=== PATIENT | male | born 1950 | race Caucasian/White ===

== ENCOUNTER → 2016-04-20 | Outpatient (CLI) | payer MEDICARE, BC ==
--- OUTSIDE RECORDS SUMMARY | 2016-04-20 11:41 | XMS REPORT | Continuity of Care Document ---
Author Author [facility] Organization [facility] Address Unknown Phone Unavailable Care Team Providers Care Notary Public Name Role Phone Zofia Kearney PCP [phone] Source Comments Some departments are not documenting in the electronic medical record. If you do not see the information that you expected, contact Release of Information in the Health Information Management department at [phone] for further assistance in locating additional records.[facility] Active Allergies and Adverse Reactions Allergen Noted Date Severity Reactions Comments Ciprofloxacin 10/25/2014 Medium EDEMA Per patient caused leg swelling and tendonitis Current Medications Prescription Sig. Disp. Refills Start End Date Status Date tamsulosin (FLOMAX) 0.4 Take 0.4 mg by mouth Active mg capsule daily. zinc sulfate 220 mg (50 Take 220 mg by mouth Active mg elemental zinc) twice daily. capsule LORazepam (ATIVAN) 0.5 mg Take 0.25-0.5 mg by mouth Active tablet every 12 hours as needed. loperamide (IMODIUM) 2 mg Take 2 mg by mouth as Active capsule Needed. cholecalciferol (VITAMIN Take 2,000 Units by mouth Active D-3) 1,000 units tablet daily. magnesium oxide (MAG-OX) Take 400 mg by mouth Active 400 mg tablet daily. amitriptyline (ELAVIL) 25 Take 1 Tab by mouth at 30 Tab 5 09/25/19 Active mg tablet bedtime daily. 16 diphenoxylate/atropine Take 1 Tab by mouth four 60 Tab 5 11/21/19 Active (LOMOTIL) 2.5/0.025 mg times daily as needed. 16 tablet albuterol (VENTOLIN HFA, Inhale 2 Puffs by mouth Active PROAIR HFA, PROVENTIL every 6 hours as needed HFA) 90 mcg/actuation for Wheezing or Shortness inhaler of Breath. Shake well before use. inFLIXimab (REMICADE) 100 Administer through vein Active mg/10 mL injection once every 6 weeks enoxaparin (LOVENOX) 80 Inject 70 mg under the Active mg syrg skin twice daily. cyanocobalamin (VITAMIN Inject 1 mL into the Active B-12, RUBRAMIN) 1,000 muscle every 30 days. mcg/mL injection emu Apply small amount to 3 Bottle 3 03/26/20 Active sites of skin breakdown 16 for pain relief prednisone (DELTASONE) 10 Take 4 Tabs by mouth 60 Tab 1 03/26/20 Active mg tablet daily with breakfast. 16 lancets (ONE TOUCH Use 1 Each as directed 300 Each 11 03/26/20 Active DELICA) MISC four times daily as 16 needed. blood sugar diagnostic Use 1 Strip as directed 300 Strip 3 03/26/20 Active (ONETOUCH VERIO) test before meals and at 16 strip bedtime. Calcium Carbonate (TUMS Chew 1 Tab by mouth twice Active E-X) 300 mg (750 mg) chew daily. pantoprazole DR Take 1 Tab by mouth twice 90 Tab 3 03/29/20 Active (PROTONIX) 40 mg tablet daily. 16 folic acid (FOLVITE) 1 mg TAKE ONE TABLET BY MOUTH 30 Tab 0 04/02/20 Active tablet ONCE DAILY 16 folic acid (FOLVITE) 1 mg Take 1 Tab by mouth 30 Tab 11 03/18/20 Discontin tablet daily. [address] Take 1 Tab by mouth 90 Tab 2 04/09/20 03/29/20 Discontin (PROTONIX) 40 mg tablet daily. 15 16 ued prednisone (DELTASONE) 10 Take 2 Tabs by mouth 60 Tab 1 02/10/2012/06 Discontin mg tablet daily with breakfast. 16 16 ued calcium carbonate (TUMS) Chew 500 mg by mouth 03/29/20 Discontin 500 mg (200 mg elemental daily. 16 ued calcium) chewable tablet cephalexin (KEFLEX) 250 Take 250 mg by mouth 02/09/20 03/26/20 Discontin mg capsule three times daily. 16 16 ued doxycycline (VIBRAMYCIN) Take 1 Tab by mouth twice 12 Tab 0 03/26/20 04/01/20 100 mg tablet daily for 6 days. 16 16 Cholecalciferol (Vitamin Take 1 Cap by mouth 03/29/20 Discontin D3) 2,000 unit cap daily. 16 ued Active Problems Problem Noted Date Melena 03/28/2016 Cellulitis 03/20/2016 Malnutrition ([facility]) 03/17/2016 Chronic deep vein thrombosis (DVT) ([facility]) 03/17/2016 Irregular heart beat 03/17/2016 Osteoporosis, idiopathic 02/18/2016 Vitamin D deficiency 02/18/2016 Crohn's disease ([facility]) 11/28/2015 Dysgeusia 11/13/2015 Diarrhea 10/26/2014 Crohn disease ([facility]) 10/24/2014 Marinelli's esophagus without dysplasia 10/24/2014 Hypoalbuminemia due to protein-calorie malnutrition ([facility]) 06/26/2014 Iron deficiency anemia due to chronic blood loss 06/26/2014 Crohn's disease of both small and large intestine with complication ([facility]) Overview: dx in 2006 rx with 5ASA and steroids stricture in TI-> surgery at [facility] 2011 c/b anastomotic leak -> Ileostomy with mucous fistula-> taken down 2012 MTX-> GI intolerance; 6MP-> Pancreatitis Remicade, Humira -> 2ry KOSTAS rather early Tysabri-> No improvement ENtyvio 2013-> No improvement; remains steroid dependent with Entocort Resolved Problems Problem Noted Date Resolved Date Abdominal pain 01/10/2015 01/13/2015 Fever 01/10/2015 01/13/2015 Most Recent Encounters Date Type Specialty Providers Description 04/14/2016 Office Visit Gastroenterology Carmen Asencio MD Arrived 04/08/2016 Telephone Gastroenterology Carmen Asencio MD Care Coordination 04/01/2016 Refill Gastroenterology Carmen Asencio MD 03/31/2016 [facility], windows server support technician Only 03/28/2016 [facility] Chloé Herman MD Melena - Encounter Chrissy Cerda MD 03/29/2016 03/26/2016 Hospital Radiology Simon Almaguer, DO Encounter Cheikh Dodson, Linda Haque Thomas, MD 03/24/2016 Telephone GastroenterCarmen Boykin MD Erroneous encounter-disregard 03/23/2016 Orders Only Gastroenterology Carmen Asencio MD 03/23/2016 Telephone Gastroenterology Carmen Asencio MD Medication Follow-up 03/20/2016 Result Letter Gastroenterology Brett Corado MD 03/19/2016 Endo Rslt Enc Carmen Cerda MD 03/19/2016 Endo Rslt Enc GastroenterCarmen Boykin MD 03/19/2016 Anesthesia Argentina Rose CRNA Event 03/19/2016 Screening Form 03/19/2016 Surgery Brett Corado MD ESOPHAGOGASTRODUODENOSCOP Y 03/18/2016 Anesthesia Merlene Gonzalez SRNA Event 03/17/2016 Hospital Thelma Hartman MD Crohn disease (HCC) - Encounter Alda Martinez MD 03/26/2016 Brett Corado MD Jones, Matthew, DO 03/17/2016 Telephone Gastroenterology Carmen Asencio MD Other - symptoms 03/03/2016 Telephone GastroenterCarmen Boykin MD Other 2016 [facility] Holger Bagley MD Other osteoporosis Encounter without current pathological fracture 02/18/2016 [facility] Holger Bagley MD Other osteoporosis Encounter without current pathological fracture 02/18/2016 Office Visit Endocrinology, Metabolism Holger Bagley MD Osteoporosis, idiopathic & Genetics (Primary Dx); Vitamin D deficiency 02/18/2016 Telephone Endocrinology Holger Bagley MD Other 02/18/2016 Telephone Gastroenterology Carmen Asencio MD Other - labs 02/17/2016 Telephone Nephrology Genoveva Knott MD Results 02/13/2016 [facility] Genoveva Knott MD Unspecified Encounter protein-calorie malnutrition 02/13/2016 Office Visit Nephrology Genoveva Knott MD CKD (chronic kidney disease), unspecified stage (Primary Dx); Hypoalbuminemia due to protein-calorie malnutrition (HCC) 02/06/2016 Refill GastroenterCarmen Boykin MD 02/05/2016 Infusion Infusion Carmen Asencio MD Crohn's disease of small and large intestines with complication (HCC) (Primary Dx); Crohn's disease of both small and large intestine with other complication (HCC) 02/05/2016 Refill General Internal Medicine Lore Peters MD 02/04/2016 Orders Only Gastroenterology Carmen Asencio MD 02/03/2016 Telephone Gastroenterology Carmen Asencio MD Other - increase Remicade dose 02/03/2016 Telephone Gastroenterology Carmen Asencio MD Care Coordination 02/03/2016 Telephone Gastroenterology Carmen Asencio MD Results 01/27/2016 [facility] Carmen Asencio MD Crohn's disease of both Encounter small and large intestine with unspecified complications 01/24/2016 Telephone Gastroenterology Carmen Asencio MD Other - Diarrhea Immunizations Name Dates Previously Given Next Due Pneumococcal Vaccine 10/26/2014 (23-Charisse Adult) Social History Tobacco Use Types Packs/Day Years Used Date Former Smoker Cigarettes 1 40 Quit: 03/17/2012 Smokeless Tobacco: Never Used Tobacco Cessation: Counseling Given: No Comments: Alcohol Use Drinks/Week oz/Week Comments No 0 Standard 0.0 drinks or equivalent Last Filed Vital Signs Vital Sign Reading Time Taken Blood Pressure 115/69 04/14/2016 9:43 AM [employer] Pulse 69 04/14/2016 9:43 AM [employer] Temperature 36.7 C (98 F) 04/14/2016 9:43 AM [employer] Respiratory Rate 16 09/25/2015 10:30 AM CDT Height 1.753 m (5' 9") 04/14/2016 9:43 AM [employer] Weight 69.854 kg (154 lb) 04/14/2016 9:43 AM [employer] Body Mass Index 22.73 04/14/2016 9:43 AM [employer] Oxygen Saturation 98% 03/29/2016 1:16 PM [employer] Plan of Care Date Type Specialty Providers Description 04/29/2016 Appointment Infusion Health Maintenance Due Date Last Done Comments Physical (Comprehensive) 1957 Exam Pertussis Vaccine 1961 Tetanus Vaccine 1967 Shingles Vaccine 2010 Influenza Vaccine 12/19/2015 Prevnar/Pneumovax (#2) 02/22/2016 10/26/2014 Colorectal Cancer 03/19/2026 03/19/2016, 03/19/2016, 11/29/2015 Additional history exists Screening Hepatitis C Screening Completed 02/18/2016 Procedures from Last 3 Months Procedure Name Priority Date/Time Associated Diagnosis Comments ECG UNCONFIRMED-SCAN 04/15/2016 Results for this 6:25 AM [employer] procedure are in the results section. TELEMETRY STRIPS-SCAN 03/31/2016 Results for this 7:25 AM [employer] procedure are in the results section. ECG-SCAN 03/30/2016 Results for this 12:13 PM [employer] procedure are in the results section. COLONOSCOPY 03/19/2016 Crohn's disease (HCC) 9:00 AM [employer] ESOPHAGOGASTRODUODENOSCOP 03/19/2016 Crohn's disease (HCC) Y 9:00 AM [employer] PROCEDURES-SCAN 03/19/2016 Results for this 7:59 AM [employer] procedure are in the results section. CONSULT IV THERAPY TEAM Routine 03/18/2016 3:38 PM [employer] CONSULT IV THERAPY TEAM Routine 03/17/2016 5:26 PM [employer] Results from Last 3 Months ECG UNCONFIRMED-SCAN (04/15/2016 6:25 AM) Narrative Ordered by an unspecified provider. TELEMETRY STRIPS-SCAN (03/31/2016 7:25 AM) Narrative Ordered by an unspecified provider. ECG-SCAN (03/30/2016 12:13 PM) Narrative Ordered by an unspecified provider. POC GLUCOSE (03/29/2016 12:13 PM)Only the most recent of 42 results within the time period is included. Component Value Range Glucose, POC 139 (H) 70-100 MG/DL CBC (03/29/2016 9:37 AM)Only the most recent of 4 results within the time period is included. Component Value Range White Blood Cells 8.9 4.5-11.0 K/UL RBC 2.40 (L) 4.4-5.5 M/UL Hemoglobin 7.4 (L) 13.5-16.5 GM/DL Hematocrit 22.9 (L) 40-50 % MCV 95.5 80-100 FL MCH 30.8 26-34 PG MCHC 32.3 32.0-36.0 G/DL RDW 22.3 (H) 11-15 % Platelet Count 334 150-400 K/UL MPV 7.0 7-11 FL Specimen Blood TRIGLYCERIDE (03/29/2016 3:24 AM)Only the most recent of 4 results within the time period is included. Component Value Range Triglycerides 122 <150 MG/DL Specimen Blood PHOSPHORUS (03/29/2016 3:24 AM)Only the most recent of 15 results within the time period is included. Component Value Range Phosphorus 4.1 (H) 2.0-4.0 MG/DL Specimen Blood MAGNESIUM (03/29/2016 3:24 AM)Only the most recent of 13 results within the time period is included. Component Value Range Magnesium 1.9 1.6-2.6 mg/dL Specimen Blood COMPREHENSIVE METABOLIC PANEL (03/29/2016 3:24 AM)Only the most recent of 13 results within the time period is included. Component Value Range Sodium 133 (L) 137-147 MMOL/L Potassium 4.5 3.5-5.1 MMOL/L Chloride 102 98-110 MMOL/L Glucose 121 (H) 70-100 MG/DL Blood Urea Nitrogen 22 7-25 MG/DL Creatinine 0.89 0.4-1.24 MG/DL Calcium 8.2 (L) 8.5-10.6 MG/DL Total Protein 4.7 (L) 6.0-8.0 G/DL Total Bilirubin 0.4 0.3-1.2 MG/DL Albumin 2.2 (L) 3.5-5.0 G/DL Alk Phosphatase 148 (H) 25-110 U/L AST (SGOT) 23 7-40 U/L CO2 27 21-30 MMOL/L ALT (SGPT) 45 7-56 U/L Anion Gap 4 3-12 eGFR Non >60Comment: >60 mL/min The eGFR is not validated for use in drug dosing adjustments. Continue to use estimated creatinine clearance per dosing reference text. Please contact the Clinical Pharmacist for questions. eGFR >60Comment: >60 mL/min The eGFR is not validated for use in drug dosing adjustments. Continue to use estimated creatinine clearance per dosing reference text. Please contact the Clinical Pharmacist for questions. Specimen Blood CBC AND DIFF (03/29/2016 3:24 AM)Only the most recent of 13 results within the time period is included. Component Value Range White Blood Cells 8.8 4.5-11.0 K/UL RBC 2.42 (L) 4.4-5.5 M/UL Hemoglobin 7.5 (L) 13.5-16.5 GM/DL Hematocrit 23.1 (L) 40-50 % MCV 95.3 80-100 FL MCH 31.1 26-34 PG MCHC 32.6 32.0-36.0 G/DL RDW 21.7 (H) 11-15 % Platelet Count 318 150-400 K/UL MPV 7.0 7-11 FL Neutrophils 75 41-77 % Lymphocytes 16 (L) 24-44 % Monocytes 9 4-12 % Eosinophils 0 0-5 % Basophils 0 0-2 % Absolute Neutrophil Count 6.60 1.8-7.0 K/UL Absolute Lymph Count 1.40 1.0-4.8 K/UL Absolute Monocyte Count 0.80 0-0.80 K/UL Absolute Eosinophil Count 0.00 0-0.45 K/UL Absolute Basophil Count 0.00 0-0.20 K/UL Specimen Blood TYPE & CROSSMATCH (03/28/2016 6:00 AM)Only the most recent of 2 results within the time period is included. Component Value Range Units Ordered 0 Crossmatch Expires 03/31/2016 Record Check FOUND ABO/RH(D) A POS Antibody Screen NEG Electronic Crossmatch YES Specimen Blood PTT (APTT) (03/28/2016 5:00 AM) Component Value Range APTT 30.5 24.0-40.0 SEC Specimen Blood PROTIME INR (PT) (03/28/2016 5:00 AM)Only the most recent of 9 results within the time period is included. Component Value Range INR 0.9 0.8-1.[address] ABD/PEL EXTERNAL IMAGING (03/27/2016 7:45 PM) Narrative This order has been auto finalized and does not contain a result. IR CENTRAL VENOUS CATHETER (03/26/2016 2:33 PM) Impressions Successfulimage-guided placement of a cuffed tunneled central venous catheter as described above. Approved by Edgar Salazar M.D. on 03/26/2016 3:04 PM IRene M.D, the attending radiologist, was present for the critical and whittaker portions of the procedure with a midlevel, resident, and/or fellow participating.Overlapping portions were non whittaker and I was immediately available.I interpret the critical and whittaker portion of this procedure to have been needle access. @TT By my electronic signature, I attest that I have personally reviewed the images for this examination and formulated the interpretations and opinions expressed in this report Finalized by Rene Ross M.D. on 03/27/2016 4:59 PM. Dictated by Edgar Salazar M.D. on 03/26/2016 3:02 PM. Narrative Tunneled cuffed Central Venous Catheter Placement Under Ultrasound and Fluoro Guidance CLINICAL INDICATION: Malnutrition, central line for TPN WHEELMAN: Tara Jackson, M.D. MEDICATIONS: Versed 2 mg IV, Fentanyl 50 ug IV ACCESS:Right internal jugular vein CONTRAST: None COMPLICATIONS: None CATHETER: Single-lumen 5 Ecuadorean cuffed Bard POWER PICC FLUOROSCOPY DOSE:8 mGy TECHNIQUE:Informed, written consent was obtained from the patient after explaining the risks and benefits of the procedure.With the patient in the supine position, the right neck and upper chest were prepped and draped in the usual sterile fashion. The skin and subcutaneous tissues were infiltrated with 2 % Lidocaine without epinephrine. Under direct ultrasound guidance, the right internal jugular vein was successfully cannulated using a micropuncture needle and an image was stored to PACS.An 0.018 wire was advanced through the needle into the vein and a 5.5 Ecuadorean peel-away sheath was advanced centrally over wire. Attention was turned to the creation of a subcutaneous tunnel.2% Lidocaine with epinephrine were infiltrated along a 10-12 cm tract caudal and lateral to the initial venotomy site.A second small dermatotomy was made.The tunneling device was used to create a subcutaneous tunnel, and the catheter was advanced through to the initial venotomy site. The catheter was cut to length. The introducer of the 5.5 Ecuadorean sheath was removed and the tunneled cuffed catheter was advanced through the sheath and positioned centrally under fluoroscopic guidance. The venotomy site was closed with Dermabond. The catheter was secured to the skin with 2-0 Ethilon per hospital policy.The patient tolerated the procedure well and remained in stable condition throughout the stay in the angiography suite.The catheter was flushed, heparinized, and a sterile dressing was applied. FINDINGS: 1. Patent right internal jugular vein by ultrasound. Needle entry was documented , and an image was stored to PACS. 2. Tip of the catheter terminates in the right atrium. Procedure Note Interface, Radiant Results - WedMar 27, 2016 5:02 PM [employer] Tunneled cuffed Central Venous Catheter Placement Under Ultrasound and Fluoro Guidance CLINICAL INDICATION: Malnutrition, central line for TPN WHEELMAN: Edgar Salazar M.D. and Rene Ross M.D. MEDICATIONS: Versed 2 mg IV, Fentanyl 50 ug IV ACCESS: Right internal jugular vein CONTRAST: None COMPLICATIONS: None CATHETER: Single-lumen 5 Ecuadorean cuffed Bard POWER PICC FLUOROSCOPY DOSE: 8 mGy TECHNIQUE: Informed, written consent was obtained from the patient after explaining the risks and benefits of the procedure. With the patient in the supine position, the right neck and upper chest were prepped and draped in the usual sterile fashion. The skin and subcutaneous tissues were infiltrated with 2 % Lidocaine without epinephrine. Under direct ultrasound guidance, the right internal jugular vein was successfully cannulated using a micropuncture needle and an image was stored to PACS. An 0.018 wire was advanced through the needle into the vein and a 5.5 Ecuadorean peel-away sheath was advanced centrally over wire. Attention was turned to the creation of a subcutaneous tunnel. 2% Lidocaine with epinephrine were infiltrated along a 10-12 cm tract caudal and lateral to the initial venotomy site. A second small dermatotomy was made. The tunneling device was used to create a subcutaneous tunnel, and the catheter was advanced through to the initial venotomy site. The catheter was cut to length. The introducer of the 5.5 Ecuadorean sheath was removed and the tunneled cuffed catheter was advanced through the sheath and positioned centrally under fluoroscopic guidance. The venotomy site was closed with Dermabond. The catheter was secured to the skin with 2-0 Ethilon per hospital policy. The patient tolerated the procedure well and remained in stable condition throughout the stay in the angiography suite. The catheter was flushed, heparinized, and a sterile dressing was applied. FINDINGS: 1. Patent right internal jugular vein by ultrasound. Needle entry was documented, and an image was stored to PACS. 2. Tip of the catheter terminates in the right atrium. IMPRESSION Successful image-guided placement of a cuffed tunneled central venous catheter as described above. Approved by Edgar Salazar M.D. on 03/26/2016 3:04 PM Rene Jones M.D, the attending radiologist, was present for the critical and whittaker portions of the procedure with a midlevel, resident, and/or fellow participating. Overlapping portions were non whittaker and I was immediately available. I interpret the critical and whittaker portion of this procedure to have been needle access. @TT By my electronic signature, I attest that I have personally reviewed the images for this examination and formulated the interpretations and opinions expressed in this report Finalized by Rene Ross M.D. on 03/27/2016 4:59 PM. Dictated by Edgar Salazar M.D. on 03/26/2016 3:02 PM. SELENIUM (03/24/2016 4:05 AM) Component Value Range Selenium 36 (L)Comment: Reference range: 70 to 150 Unit: ng/mL ADDITIONAL INFORMATION This test was developed and its performance characteristics determined by [facility] in a manner consistent with CLIA requirements. This test has not been cleared or approved by the U.S. Food and Drug Administration. [facility], [address] [place] [id number] Specimen Blood TRANSFUSE RBC'S NON-BLEEDING PT (03/22/2016 4:50 PM) Specimen Blood BLOOD TYPE CONFIRMATION - ORDER ONLY IF REQUESTED BY LAB (03/22/2016 10:50 AM) Component Value Range ABO/RH(D) A POS Specimen Blood IRON + BINDING CAPACITY + %SAT (03/21/2016 4:21 PM)Only the most recent of 2 results within the time period is included. Component Value Range Iron 43 (L)Comment: SLT HEMOLYSIS 50-185 MCG/DL Specimen Blood GGTP (03/21/2016 4:55 AM) Component Value Range GGTP 100 (H) 9-64 U/L VANCOMYCIN TROUGH (03/21/2016 4:55 AM) Component Value Range Vancomycin Trough 14.1 10.0-20.0 MCG/ML Specimen Blood, venous - Blood FERRITIN (03/21/2016 4:55 AM) Component Value Range Ferritin 1059 (H) 30-300 NG/ML Specimen Blood BASIC METABOLIC PANEL (03/20/2016 1:35 PM)Only the most recent of 2 results within the time period is included. Component Value Range Sodium 129 (L) 137-147 MMOL/L Potassium 4.0 3.5-5.1 MMOL/L Chloride 101 98-110 MMOL/L CO2 26 21-30 MMOL/L Anion Gap 2 (L) 3-12 Glucose 111 (H) 70-100 MG/DL Blood Urea Nitrogen 14 7-25 MG/DL Creatinine 0.71 0.4-1.24 MG/DL Calcium 6.3 (L) 8.5-10.6 MG/DL eGFR Non >60Comment: >60 mL/min The eGFR is not validated for use in drug dosing adjustments. Continue to use estimated creatinine clearance per dosing reference text. Please contact the Clinical Pharmacist for questions. eGFR >60Comment: >60 mL/min The eGFR is not validated for use in drug dosing adjustments. Continue to use estimated creatinine clearance per dosing reference text. Please contact the Clinical Pharmacist for questions. Specimen Blood MRI ENTEROGRAPHY (03/19/2016 9:35 PM) Impressions 1.Prior right colectomy with a right upper quadrant enterocolonic anastomosis.Similar appearance of active inflammation involving the neoterminal ileum with associated complex fistulous tracts to adjacent tethered small bowel and small right upper quadrant peritoneal abscess. 2.Areas of colitis involving the transverse, descending and sigmoid colon 3.Diffuse hepatic steatosis 4.Diffuse iron overload throughout the normal-sized spleen, most suggestive of secondary hemochromatosis Finalized by Horacio Hester M.D. on 03/20/2016 8:06 AM. Dictated by Horacio Hester M.D. on 03/20/2016 7:44 AM. Narrative MRI ABDOMEN AND PELVIS Clinical Indication:Male, 66 years old. History of Crohn's disease. Please evaluate bowel.Crohn disease.Worsening nausea, vomiting and diarrhea. Technique:Multisequence and multiplanar MR imaging was obtained through the abdomen and pelvis before and following the administration of IV gadolinium contrast. IV Contrast:Multihance Bowel contrast: None Magnet:3 Melanie Siemens Comparison: Noncontrast CT abdomen/pelvis November 30, 2015.Contrast-enhanced CT abdomen/pelvis October 26, 2014 ABDOMEN FINDINGS: Lower Thorax: Unremarkable. Liver and Biliary system: Normal size liver. Diffuse hepatic steatosis. Spleen: Diffuse iron overload throughout the spleen.Normal size spleen. Adrenal Glands and Kidneys: There are several small left renal cysts, one of which is hemorrhagic. The right kidney and both adrenal glands are unremarkable. Pancreas and Retroperitoneum: Diffuse edema throughout the retroperitoneal fat. Aorta and Major Vessels: Normal caliber abdominal aorta with mild atherosclerosis. Bowel, Mesentery and Peritoneal space: Diffuse edema throughout the peritoneal fat. The right colon is absent with a right upper quadrant ileal colonic anastomosis. The small and large bowel loops are normal in caliber. There is a moderate length segment of bowel wall thickening, edema and mucosal hyperenhancement involving the sigmoid colon. There is a long segment of bowel wall thickening, edema and mucosal hyperenhancement involving the distal transverse colon and descending colon. There is a short segment of bowel wall thickening, edema and mucosal hyperenhancement involving the small bowel loop in the right upper quadrant (series 14 image 26) that leads to the anastomosis with the proximal transverse colon, similar to the prior exam. There is unchanged tethering of this and several adjacent small bowel loops in the right upper quadrant with a probable fistulous connection (series 14 image 26, series 2 image 7).There is a fistulous tract extending from these tethered small bowel loops into the anterior abdominal peritoneal fat of the right abdomen, just deep to the rectus abdominal wall musculature with a small associated abscess (series 5 image 29, series 16 image 33). Pelvis findings: Pelvis: Unremarkable. Abdominal wall and Osseous Structures: Diffuse body wall edema. Procedure Note Interface, Radiant Results - WedMar 20, 2016 8:09 AM AUTOMATIC DATA PROCESSING PLANNER MRI ABDOMEN AND PELVIS Clinical Indication: Male, 66 years old. History of Crohn's disease. Please evaluate bowel. Crohn disease. Worsening nausea, vomiting and diarrhea. Technique: Multisequence and multiplanar MR imaging was obtained through the abdomen and pelvis before and following the administration of IV gadolinium contrast. IV Contrast:Multihance Bowel contrast: None Magnet:3 Melanie Siemens Comparison: Noncontrast CT abdomen/pelvis November 30, 2015. Contrast-enhanced CT abdomen/pelvis October 26, 2014 ABDOMEN FINDINGS: Lower Thorax: Unremarkable. Liver and Biliary system: Normal size liver. Diffuse hepatic steatosis. Spleen: Diffuse iron overload throughout the spleen. Normal size spleen. Adrenal Glands and Kidneys: There are several small left renal cysts, one of which is hemorrhagic. The right kidney and both adrenal glands are unremarkable. Pancreas and Retroperitoneum: Diffuse edema throughout the retroperitoneal fat. Aorta and Major Vessels: Normal caliber abdominal aorta with mild atherosclerosis. Bowel, Mesentery and Peritoneal space: Diffuse edema throughout the peritoneal fat. The right colon is absent with a right upper quadrant ileal colonic anastomosis. The small and large bowel loops are normal in caliber. There is a moderate length segment of bowel wall thickening, edema and mucosal hyperenhancement involving the sigmoid colon. There is a long segment of bowel wall thickening, edema and mucosal hyperenhancement involving the distal transverse colon and descending colon. There is a short segment of bowel wall thickening, edema and mucosal hyperenhancement involving the small bowel loop in the right upper quadrant (series 14 image 26) that leads to the anastomosis with the proximal transverse colon, similar to the prior exam. There is unchanged tethering of this and several adjacent small bowel loops in the right upper quadrant with a probable fistulous connection (series 14 image 26, series 2 image 7). There is a fistulous tract extending from these tethered small bowel loops into the anterior abdominal peritoneal fat of the right abdomen, just deep to the rectus abdominal wall musculature with a small associated abscess (series 5 image 29, series 16 image 33). Pelvis findings: Pelvis: Unremarkable. Abdominal wall and Osseous Structures: Diffuse body wall edema. IMPRESSION 1. Prior right colectomy with a right upper quadrant enterocolonic anastomosis. Similar appearance of active inflammation involving the neoterminal ileum with associated complex fistulous tracts to adjacent tethered small bowel and small right upper quadrant peritoneal abscess. 2. Areas of colitis involving the transverse, descending and sigmoid colon 3. Diffuse hepatic steatosis 4. Diffuse iron overload throughout the normal-sized spleen, most suggestive of secondary hemochromatosis Finalized by Horacio Hester M.D. on 03/20/2016 8:06 AM. Dictated by Horacio Hester M.D. on 03/20/2016 7:44 AM. CULTURE-BLOOD W/SENSITIVITY (03/19/2016 4:07 PM)Only the most recent of 2 results within the time period is included. Component Value Range Battery Name BLOOD CULTURE Specimen Description BLOOD LH Special Requests NONE Culture NO GROWTH 5 DAYS Report Status FINAL 03/25/2016 Specimen Blood SURGICAL PATHOLOGY (03/19/2016 12:20 PM) Component Value Range PATHOLOGY REPORT [email or web address] Libby Castillo MD, PhD, Director of Anatomic Pathology Department of Pathology and Laboratory Medicine [address] [place] [id number] Surgical Pathology Office: [phone] SURGICAL PATHOLOGY REPORT NAME: PAYAM CHRISTEL Yuliana SURG PATH #: [id number] MR #: [id number] SPECIMEN CLASS: SR BILLING #: [id number] ALT ID #: LOCATION: [id number] DATE OF PROCEDURE: 03/19/2016 AGE: 66 SEX: M DATE RECEIVED: 03/19/2016 : 1950 TIME RECEIVED: 12:20 PHYSICIAN: BRETT CORADO DATE OF REPORT: 03/20/2016 COPY TO: DATE OF PRINTIN03/23/2016 Procedures/Addenda Addendum Date Ordered: 03/22/2016 Status: Signed Out Date Complete: 03/22/2016 By: Roque Fishman MD, Attending Physician Date Reported: 03/23/2016 Addendum Diagnosis The final diagnosis remains unchanged. See comment. Addendum Comment Immunohistochemical staining on blocks C1, D1, and E1 for CMV, HSVI, and HSVII are all negative for viral inclusions. Roque Fishman MD, Attending Physician ################################################## ###################### Final Diagnosis: A. Gastric mucosa, gastric biopsies: Reactive gastropathy. No H. pylori-like organisms are identified on H and E sections. B. Small intestinal mucosa, duodenal biopsies: No diagnostic abnormalities. C. Colonic mucosa, anastomosis colon biopsies: Focal cryptitis. D. Colonic mucosa, random colon biopsy: No diagnostic abnormalities. E. Colonic mucosa, rectal biopsies: No diagnostic abnormalities. Attestation: By this signature, I attest that I have personally formulated the final interpretation expressed in this report and that the above diagnosis is based upon my examination of the slides and/or other material indicated in this report. +++Electronically Signed Out By+++ ksw/03/19/2016 Interpreted by: Roque Fishman MD, Attending Physician Darryn Lancaster M.D. Resident 03/20/2016 ################################################## ###################### Material Received: A: gastric biopsies B: duodenal biopsies C: anastomosis colon biopsies D: random colon biopsy E: rectal biopsies History: 66-year-old male with a clinical history of Crohn's disease. A. Rule out IBD, Helicobacter pylori. B. Rule out IBD. C. Rule out CMV, HSV, Crohn's disease. D. Rule out CMV, HSV, Crohn's disease. E. Rule out CMV, HSV, Crohn's disease. Gross Description: A. Received in formalin labeled "gastric biopsies" is a 0.9 x 0.3 x 0.2 cm aggregate of chen-brown soft tissue fragments. The specimen is entirely submitted in cassette A1. (jrz) B. Received in formalin labeled "duodenal biopsies" is a 0.7 x 0.2 x 0.2 cm aggregate of chen-brown soft tissue fragments. The specimen is entirely submitted in cassette B1. (jrz) C. Received in formalin labeled "colon anastomosis biopsies" is a 1.1 x 0.2 x 0.2 cm aggregate of chen-brown soft tissue fragments. The specimen is entirely submitted in cassette C1. (jrz) D. Received in formalin labeled "random colon biopsies" is a 1.1 x 0.3 x 0.2 cm aggregate of chen-brown soft tissue fragments. The specimen is entirely submitted in cassette D1. (jrz) E. Received in formalin labeled "colon rectum biopsies" is a 0.7 x 0.3 x 0.1 cm aggregate of chen-brown soft tissue fragments. The specimen is entirely submitted in cassette E1. (jrz) ksw/03/19/2016 Darryn Lancaster M.D. Resident If immunohistochemical stains and/or in situ hybridization are cited in this report, the performance characteristics were determined by the Department of Pathology and Laboratory Medicine of the [facility] ([employer] [facility]) in compliance with CLIA'88 regulations. Some of these tests rely on the use of "analyte specific reagents" and are subject to specific labeling requirements by the FDA. Known positive and negative control tissues demonstrate appropriate staining. This testing was developed by the Department of Pathology and Laboratory Medicine of the [facility]. It has not been cleared or approved by the FDA. The FDA has determined that such clearance or approval is not necessary. COLONOSCOPY (03/19/2016 9:38 AM) Component Value Range Provation Report Patient Name: Payam Blake Procedure Date: 03/19/2016 9:38 AM [facility]: [id number] Date of : 1950 Gender: Male Attending Physician: Brett Corado MD Procedure: Colonoscopy Indications: Pe rsonal history of Crohn's disease Providers: Brett Corado MD (Doctor), Melvina Hartley MD (Fellow), Jayme Yan RN (Nurse), Kristina Kim, Director Of Clinical Services (Director Of Clinical Services) Referring Physician: Carmen Asencio MD Medications: Mo nitored Anesthesia Care Complications: No immediate complications. Procedure: Pre-Anesthesia Assessment: - Prior to the procedure, a History and Physical was performed, and patient medications and allergies were reviewed. The patient's tolerance of previous anesthesia was also reviewed. The risks and benefits of the procedure and the sedation options and risks were discussed with the patient. All questions were answered, and informed consent was obtained. Prior Anticoagulants: The patient has taken no previous anticoagulant or antiplatelet agents. ASA Grade Assessment: III - A patient with severe systemic disease. After reviewing the risks and benefits, the patient was deemed in satisfactory condition to undergo the procedure. After I obtained informed consent, the scope was passed under direct vision. Throughout the procedure, the patient's blood pressure, pulse, and oxygen saturations were monitored continuously. The Colonoscope [id number] was introduced through the anus and advanced to the ileocolonic anastomosis. The colonoscopy was performed without difficulty. The patient tolerated the procedure well. The quality of the bowel preparation was good. The rectum and Surgical anastamosis were photographed. Findings: There was severe inflammation with granular cobblestone tissue at entry of the rahel-terminal ileum and scope was not able to be intubated in to the ileum. Biopsies were obatained from abnormal mucosa to rule out IBD, CMV and HSV infection. The colon (entire examined portion) mucosa appeared edematous with decreased vascularity. Random biopsies were taken with a cold forceps for histology. The rectum appeared erythematous, with decreased vascularity. Seperate biopsies were taken with a cold forceps for histology. Retroflexion view was not performed due to inflammation and careful end on view was performed that showed small hemorrhoids. Impression: There was severe inflammation with granular cobblestone tissue at entry of the rahel-terminal ileum and scope was not able to be intubated in to the ileum. Biopsies were obatained from abnormal mucosa to rule out IBD, CMV and HSV infection. The colon (entire examined portion) mucosa appeared edematous with decreased vascularity. Random biopsies were taken with a cold forceps for histology. The rectum appeared erythematous, with decreased vascularity. Sepearte biopsies were taken with a cold forceps for histology. Retroflexion view was not performed due to inflammation and careful end on view was performed that showed small hemorrhoids. Estimated Blood Loss: Estimated blood loss was minimal. Recommendation: - Patient has a contact number available for emergencies. The signs and symptoms of potential delayed complications were discussed with the patient. Return to normal activities tomorrow. Written discharge instructions were provided to the patient. - Resume previous diet. - Continue present medications. - Return patient to [facility] for ongoing care. - Await pathology results. - Repeat colonoscopy is recommended for surveillance. The colonoscopy date will be determined after pathology results from today's exam become available for review. Scope In: 9:41:51 AM Scope Out: 10:15:03 AM Scope Withdrawal Time 0 hours 11 minutes 48 seconds Total Procedure Duration Time 0 hours 33 minutes 12 seconds Procedure Code(s): --- Professional --- 83205, Colonoscopy, flexible; with biopsy, single or multiple Diagnosis Code(s): --- Professional --- Z87.19, Personal history of other diseases of the digestive system CPT copyright 2015 [employer]. All rights reserved. The codes documented in this report are preliminary and upon quality control tester review may be revised to meet current compliance requirements. Attending Participation: I was present and participated during the entire procedure, including non-whittaker portions. MD Brett Caraballo MD 03/19/2016 10:43:10 AM The attending physician has electronically signed and finalized this document. MD Melvina Haider MD 03/19/2016 10:31:04 AM Number of Addenda: 0 Note Initiated On: 03/19/2016 9:38 AM EGD (03/19/2016 9:12 AM) Component Value Range Provation Report Patient Name: Payam Blake Procedure Date: 03/19/2016 9:12 AM CSN: [id number] Date of : 1950 Gender: Male Attending Physician: Brett Corado MD Procedure: Upper GI endoscopy Indications: Cr ohn's disease Providers: Brett Corado MD (Doctor), Melvina Hartley MD (Fellow), Jayme Yan RN (Nurse), Kristina Kim, Director Of Clinical Services (Director Of Clinical Services) Referring Physician: Carmen Asencio MD Medications: Mo nitored Anesthesia Care Complications: No immediate complications. Procedure: Pre-Anesthesia Assessment: - Prior to the procedure, a History and Physical was performed, and patient medications and allergies were reviewed. The patient's tolerance of previous anesthesia was also reviewed. The risks and benefits of the procedure and the sedation options and risks were discussed with the patient. All questions were answered, and informed consent was obtained. Prior Anticoagulants: The patient has taken no previous anticoagulant or antiplatelet agents. ASA Grade Assessment: III - A patient with severe systemic disease. After reviewing the risks and benefits, the patient was deemed in satisfactory condition to undergo the procedure. After obtaining informed consent, the endoscope was passed under direct vision. Throughout the procedure, the patient's blood pressure, pulse, and oxygen saturations were monitored continuously. The Endoscope 6601 was introduced through the mouth, and advanced to the second part of duodenum. The upper GI endoscopy was accomplished without difficulty. The patient tolerated the procedure well. Findings: Esophagogastric landmarks were identified: the Z-line was found at 40 cm from the incisors. A 3 cm hiatus hernia was present. The mucosa of the stomach was erythematous and granular, with thickened folds. Biopsies were obatined for histologic evaluation. The examined duodenum was normal. Biopsies were obatined for histologic evaluation. Impression: - Esophagogastric landmarks identified. - 3 cm hiatus hernia. - The mucosa of the stomach was erythematous, and granular, with thickened folds. Biopsies were obatined for histologic evaluation. - The examined duodenum was normal. Biopsies were obatined for histologic evaluation. Estimated Blood Loss: Estimated blood loss: none. Recommendation: - Patient has a contact number available for emergencies. The signs and symptoms of potential delayed complications were discussed with the patient. Return to normal activities tomorrow. Written discharge instructions were provided to the patient. - Resume previous diet. - Continue present medications. - Return to referring physician. - Return patient to [facility] for ongoing care. - Await pathology results. Scope In: 9:29:38 AM Scope Out: 9:37:41 AM Total Procedure Duration Time 0 hours 8 minutes 3 seconds Procedure Code(s): --- Professional --- 12926, Esophagogastroduodenoscopy, flexible, transoral; with biopsy, single or multiple Diagnosis Code(s): --- Professional --- K44.9, Diaphragmatic hernia without obstruction or gangrene K50.90, Crohn's disease, unspecified, without complications CPT copyright 2015 [employer]. All rights reserved. The codes documented in this report are preliminary and upon quality control tester review may be revised to meet current compliance requirements. Attending Participation: I was present and participated during the entire procedure, including non-whittaker portions. MD Brett Caraballo MD 03/19/2016 10:42:37 AM The attending physician has electronically signed and finalized this document. Melvina Hartley MD Number of Addenda: 0 Note Initiated On: 03/19/2016 9:12 AM PROCEDURES-SCAN (03/19/2016 7:59 AM) Narrative Ordered by an unspecified provider. COPPER (03/19/2016 4:47 AM) Component Value Range Copper, Serum 0.34 (L)Comment: Reference range: 0.75 to 1.45 Unit: mcg/mL ADDITIONAL INFORMATION This test was developed and its performance characteristics determined by [facility] in a manner consistent with CLIA requirements. This test has not been cleared or approved by the U.S. Food and Drug Administration. [facility], [address] [place] [id number] Specimen Blood ZINC (03/19/2016 4:47 AM) Component Value Range Zinc 0.21 (L)Comment: Reference range: 0.66 to 1.10 Unit: mcg/mL ADDITIONAL INFORMATION This test was developed and its performance characteristics determined by [facility] in a manner consistent with CLIA requirements. This test has not been cleared or approved by the U.S. Food and Drug Administration. [facility], [address] [place] [id number] Specimen Blood IONIZED CALCIUM (03/19/2016 4:45 AM) Component Value Range Ionized Calcium 1.01 1.0-1.3 MMOL/L Specimen Blood LINE PLCMT 1V CXR (03/18/2016 5:21 PM)Only the most recent of 2 results within the time period is included. Impressions ADJUSTMENT OF LEFT PICC LINE WITH TIP OVERLYING THE ATRIOCAVAL JUNCTION. Approved by Jose Daniel Colin M.D. on 03/19/2016 9:02 AM By my electronic signature, I attest that I have personally reviewed the images for this examination and formulated the interpretations and opinions expressed in this report Finalized by Larry Jones M.D. on 03/19/2016 11:39 AM. Dictated by Jose Daniel Colin M.D. on 03/19/2016 7:16 AM. Narrative LINE PLCMT 1V CXR History: PICC. Technique: Single portable AP upright view of the chest was obtained. Comparison: Same day chest radiograph. Findings: Interval adjustment of the left PICC line with tip now overlying the atrial caval junction. The cardiac silhouette is within normal limits of size. There is no pulmonary vascular congestion. No pneumothorax, consolidating pneumonia or pleural effusion is identified. Procedure Note Interface, Radiant Results - [facility] Mar 19, 2016 11:42 AM AUTOMATIC DATA PROCESSING PLANNER LINE PLCMT 1V CXR History: PICC. Technique: Single portable AP upright view of the chest was obtained. Comparison: Same day chest radiograph. Findings: Interval adjustment of the left PICC line with tip now overlying the atrial caval junction. The cardiac silhouette is within normal limits of size. There is no pulmonary vascular congestion. No pneumothorax, consolidating pneumonia or pleural effusion is identified. IMPRESSION ADJUSTMENT OF LEFT PICC LINE WITH TIP OVERLYING THE ATRIOCAVAL JUNCTION. Approved by Jose Daniel Colin M.D. on 03/19/2016 9:02 AM By my electronic signature, I attest that I have personally reviewed the images for this examination and formulated the interpretations and opinions expressed in this report Finalized by Larry Jones M.D. on 03/19/2016 11:39 AM. Dictated by Jose Daniel Colin M.D. on 03/19/2016 7:16 AM. US DOPPLER VENOUS W EXTRM RIGHT (03/18/2016 10:57 AM) Impressions No evidence of right upper extremity DVT as noted above. Finalized by Pauline William M.D. on 03/18/2016 11:07 AM. Dictated by Pauline William M.D. on 03/18/2016 11:04 AM. Narrative Ultrasound Doppler of right upper extremity. Clinical Indication: 66-year-old male with redness and swelling of right upper extremity. Evaluate for DVT. Technique: Multiple real-time grayscale sonographic images were obtained throughout the left upper extremity with additional color Doppler and duplex acquisitions. Findings: There is no filling defect within the visualized cephalic, brachial, basilic or axillary veins in the right upper extremity. The right subclavian, internal jugular and innominate veins appear patent. Note that the cephalic vein is only seen near the medial subclavian vein. Edema about the forearm is noted. No soft tissue mass or fluid collection is identified. Specific abnormality is not seen in the region of patient's localized skin redness. Procedure Note Interface, Radiant Results - WedMar 18, 2016 11:10 AM AUTOMATIC DATA PROCESSING PLANNER Ultrasound Doppler of right upper extremity. Clinical Indication: 66-year-old male with redness and swelling of right upper extremity. Evaluate for DVT. Technique: Multiple real-time grayscale sonographic images were obtained throughout the left upper extremity with additional color Doppler and duplex acquisitions. Findings: There is no filling defect within the visualized cephalic, brachial, basilic or axillary veins in the right upper extremity. The right subclavian, internal jugular and innominate veins appear patent. Note that the cephalic vein is only seen near the medial subclavian vein. Edema about the forearm is noted. No soft tissue mass or fluid collection is identified. Specific abnormality is not seen in the region of patient's localized skin redness. IMPRESSION No evidence of right upper extremity DVT as noted above. Finalized by Pauline William M.D. on 03/18/2016 11:07 AM. Dictated by Pauline William M.D. on 03/18/2016 11:04 AM. CULTURE-FECES W/SENSITIVITY (03/18/2016 3:43 AM) Component Value Range Battery Name STOOL CULTURE Specimen Description FECES Special Requests NONE Culture NO SALMONELLA, SHIGELLA, CAMPYLOBACTER, AEROMONAS, OR PLESIOMONAS SHIGA TOXIN NOT DETECTED Report Status FINAL 03/21/2016 Specimen Stool - Feces CRYPTOSPORIDUM,FECAL (03/18/2016 3:43 AM) Component Value Range Battery Name CRYPTOSPORIDIUM Specimen Description FECES Special Requests NONE Cryptosporidium NEGATIVE FOR CRYPTOSPORIDIUM Report Status FINAL 03/18/2016 Specimen Stool - Feces GIARDIA SCREEN,FECAL (03/18/2016 3:43 AM) Component Value Range Battery Name GIARDIA SCREEN Specimen Description FECES Special Requests NONE Giardia EIA NEGATIVE FOR GIARDIA (LAMBLIA) INTESTINALIS Report Status FINAL 03/18/2016 Specimen Feces C DIFFICILE BY PCR (03/18/2016 3:43 AM)Only the most recent of 2 results within the time period is included. Component Value Range Battery Name C DIFFICILE PCR Specimen Description FECES Special Requests NONE C. Difficile Toxin B PCR NEGATIVE-wait 7 days to repeat test Report Status FINAL 03/18/2016 Specimen Feces LEUKOCYTES, FECAL (03/18/2016 3:43 AM) Component Value Range Battery Name FECAL LEUKOCYTES Specimen Description FECES Special Requests NONE Fecal Leukocytes POSITIVE BY LACTOFERRIN Report Status FINAL 03/18/2016 Specimen Stool - Feces OSMOLALITY-URINE RANDOM (03/17/2016 11:25 PM) Component Value Range Osmolality-Urine 323 50-1400 MOS/KG Specimen Urine SODIUM-URINE RANDOM (03/17/2016 11:25 PM) Component Value Range Sodium, Random 11 MMOL/L Specimen Urine SED RATE (03/17/2016 9:30 PM) Component Value Range Sed Rate -ESR 5 0-20 MM/HR Specimen Blood PREALBUMIN (03/17/2016 5:20 PM) Component Value Range Prealbumin 3.0 (L) 17-34 MG/DL Specimen Blood C REACTIVE PROTEIN (CRP) (03/17/2016 5:20 PM) Component Value Range C-Reactive Protein 2.62 (H) <1.0 MG/DL Specimen Blood URINE COLLECTION (2016 12:06 PM) Component Value Range Collection Period, Urine 24.0 Volume, Urine 1480 MLS CREATININE-URINE 24 HR (2016 12:06 PM) Component Value Range Creatinine, Random 78 MG/DL Creat/24 HR 9501 621-8964 MG/24 HRS Specimen Urine CALCIUM-URINE 24HR (2016 12:06 PM) Component Value Range Calcium-Urine,Random 2.0 MG/DL Calcium, 24 HR 29.6 (L) 100-300 MG/24 HRS Specimen Urine ALBUMIN (02/18/2016 2:20 PM) Component Value Range Albumin 1.8 (L) 3.5-5.0 G/DL TSH WITH FREE T4 REFLEX (02/18/2016 2:20 PM) Component Value Range TSH 3.382 0.35-5.00 MCU/ML Specimen Blood 25-OH VITAMIN D (D2 + D3) (02/18/2016 2:20 PM) Component Value Range Vitamin D(25-OH)Total 27.3 (L) 30-80 NG/ML Specimen Blood HEPATITIS C AB (02/18/2016 2:20 PM) Component Value Range Anti HCV NEG Specimen Blood T SPOT TB (02/18/2016 2:20 PM) Component Value Range T Spot TB Negative The test result is Negative because the spot count in (Panel A minus Nil Control) and (Panel B minus Nil Control) is less than or equal to 4. This includes values less than zero.[id number]: Diagnosing or excluding tuberculosis disease, and assessing the probability of LTBI, requires a combination of epidemiological, historical, medical and diagnostic findings that should be taken into account when interpreting T-SPOT.TB test results. Refer to the most recent CDC guidance (http://www.cdc.gov/tb/publications/guidelines/def viry.htm) for detailed recommendations on diagnosing TB infection (including disease) and selecting persons for testing. Guidelines set forth by the Centers of Disease Control and Prevention (CDC) recommend contacts of a person with tuberculosis (TB) disease who have a negative initial interferon-gamma release assay (IGRA) or TST within 8 weeks of exposure be retested 8 - 10 weeks after last exposure. [id number] Neg Control TB Spot Count 2 Panel A TB Spot Count 5 Panel B TB Spot Count 1 Pos Control TB Spot Count >20 Specimen Blood PROTEIN/CR RATIO,UR RAN (02/13/2016 1:20 PM) Component Value Range Protein, Random 6 MG/DL Creatinine, Random 92 MG/DL Protein/CR ratio 0.1 Specimen Urine POC URINE DIPSTICK AUTO READ (02/13/2016) Component Value Range Urine Glucose POC Normal Urine Bilirubin POC 1 Urine Ketone POC Negative Urine Specific [place] 1.015 POC Urine Blood POC Negative Urine PH POC 6 Urine Protein POC Negative Urine Urobilinogen POC 1 Urine Nitrite POC Negative Urine Leukocytes POC Negative Specimen Urine INFLIXIMAB AB,S (01/27/2016 8:39 AM) Component Value Range Infliximab AB, S <20.0 Reference range: <50.0 Unit: U/mL [facility] Interpretation, INXAB Absence of detectable xalbyeln-ij-estygwuato. Low concentration of infliximab may be attributable to other parameters related to infliximab clearance. ADDITIONAL INFORMATION This test was developed and its performance characteristics determined by [facility] in a manner consistent with CLIA requirements. This test has not been cleared or approved by the U.S. Food and Drug Administration. [facility] [employer] INFLIXIMAB QUANT W REFLEX ANTIBODIES, SERUM (01/27/2016 8:39 AM) Component Value Range Infliximab, S <1.0 Unit: mcg/mL REFERENCE VALUE Limit of Quantitation=1.0 mcg/mL [facility], [address] [place] [id number] . Infliximab was not detectable by LC-MS/MS method. For concentrations of infliximab less than or equal to 5.0 mcg/mL, reflex testing for ixcsufnpcd-dl-kauqhpjnzv will be performed. ADDITIONAL INFORMATION This test was developed and its performance characteristics determined by [facility] in a manner consistent with CLIA requirements. This test has not been cleared or approved by the U.S. Food and Drug Administration. [facility] [employer], [facility] [place] [address] (L) VITAMIN B12 (01/27/2016 8:38 AM) Component Value Range Vitamin B12 1347 (H) 180-914 PG/ML Specimen Blood
[2016-04-20 11:43] LABS: BASOPHILS % (AUTO) 0 % (0-10); EOSINOPHILS % (AUTO) 0 % (0-10); LYMPHOCYTES # (AUTO) 0.6 X 10^3 (1.0-4.0); LYMPHOCYTES % (AUTO) 7 % (12-44); MEAN CORPUSCULAR HEMOGLOBIN 32 PG (25-34); MEAN CORPUSCULAR HGB CONC 31 G/DL (32-36); MEAN CORPUSCULAR VOLUME 103 FL (80-99); MEAN PLATELET VOLUME 10.1 FL (7.4-10.4); MONOCYTES # (AUTO) 0.7 X 10^3 (0.0-1.0); MONOCYTES % (AUTO) 8 % (0-12); NEUTROPHILS # (AUTO) 8.1 X 10^3 (1.8-7.8); NEUTROPHILS % (AUTO) 85 % (42-75); PLATELET COUNT 266 10^3/uL (130-400); RED BLOOD COUNT 2.48 10^6/uL (4.35-5.85); RED CELL DISTRIBUTION WIDTH 15.7 % (10.0-14.5); WHITE BLOOD COUNT 9.6 10^3/uL (4.3-11.0)
[2016-04-20 12:01] LABS: ANISOCYTOSIS SLIGHT; BAND NEUTROPHILS 8 %; BASOPHILS % (MANUAL) 1 %; EOSINOPHILS % (MANUAL) 0 %; LYMPHOCYTES % (MANUAL) 7 %; MYELOCYTES % 2 %; NEUTROPHILS % (MANUAL) 73 %
[2016-04-20 12:04] LABS: ALANINE AMINOTRANSFERASE 30 U/L (0-55); ANION GAP 6 MMOL/L (5-14); ASPARTATE AMINO TRANSFERASE 28 U/L (5-34); BILIRUBIN,TOTAL 0.2 MG/DL (0.1-1.0); BLOOD UREA NITROGEN 43 MG/DL (7-18); BUN/CREATININE RATIO 52; CARBON DIOXIDE 25 MMOL/L (21-32); CHLORIDE 106 MMOL/L (98-107); CREATININE SERUM 0.82 MG/DL (0.60-1.30); GFR ESTIMATED > 60; GLUCOSE 95 MG/DL (70-105); MAGNESIUM 1.9 MG/DL (1.8-2.4); PHOSPHORUS 3.1 MG/DL (2.3-4.7); POTASSIUM 4.5 MMOL/L (3.6-5.0); SODIUM 137 MMOL/L (135-145); TOTAL PROTEIN 5.1 G/DL (6.4-8.2); TRIGLYCERIDES 74 MG/DL (<150)
== END ==
LOC: LABNPT 11:36
PROVIDERS: ATTEND Internal Medicine
DX: E46 Unspecified protein-calorie malnutrition (principal); Z79.899 Other long term (current) drug therapy
CPT/HCPCS: 80053; 83735; 84100; 84478; 85007; 85027

== ENCOUNTER → 2016-10-19 | Outpatient (CLI) | payer MEDICARE, BC ==
[2016-10-19 18:54] LABS: BASOPHILS % (AUTO) 0 % (0-10); EOSINOPHILS % (AUTO) 0 % (0-10); LYMPHOCYTES # (AUTO) 1.1 X 10^3 (1.0-4.0); LYMPHOCYTES % (AUTO) 10 % (12-44); MEAN CORPUSCULAR HEMOGLOBIN 22 PG (25-34); MEAN CORPUSCULAR HGB CONC 30 G/DL (32-36); MEAN CORPUSCULAR VOLUME 74 FL (80-99); MEAN PLATELET VOLUME 9.5 FL (7.4-10.4); MONOCYTES # (AUTO) 0.7 X 10^3 (0.0-1.0); MONOCYTES % (AUTO) 6 % (0-12); NEUTROPHILS # (AUTO) 9.7 X 10^3 (1.8-7.8); NEUTROPHILS % (AUTO) 84 % (42-75); PLATELET COUNT 396 10^3/uL (130-400); RED BLOOD COUNT 3.78 10^6/uL (4.35-5.85); RED CELL DISTRIBUTION WIDTH 18.1 % (10.0-14.5); WHITE BLOOD COUNT 11.6 10^3/uL (4.3-11.0)
[2016-10-19 19:09] LABS: BAND NEUTROPHILS 5 %; LYMPHOCYTES % (MANUAL) 8 %; NEUTROPHILS % (MANUAL) 83 %
[2016-10-19 19:10] LABS: HYPOCHROMASIA MARKED; POLYCHROMASIA SLIGHT
[2016-10-19 19:14] LABS: ALANINE AMINOTRANSFERASE 13 U/L (0-55); ALBUMIN 3.2 GM/DL (3.2-4.5); ANION GAP 11 MMOL/L (5-14); ASPARTATE AMINO TRANSFERASE 12 U/L (5-34); BILIRUBIN,TOTAL 0.2 MG/DL (0.1-1.0); BLOOD UREA NITROGEN 30 MG/DL (7-18); BUN/CREATININE RATIO 30; CALCIUM 8.3 MG/DL (8.5-10.1); CARBON DIOXIDE 22 MMOL/L (21-32); CHLORIDE 105 MMOL/L (98-107); CREATININE SERUM 1.01 MG/DL (0.60-1.30); GFR ESTIMATED > 60; GLUCOSE 84 MG/DL (70-105); MAGNESIUM 1.7 MG/DL (1.8-2.4); PHOSPHORUS 3.6 MG/DL (2.3-4.7); POTASSIUM 4.8 MMOL/L (3.6-5.0); SODIUM 138 MMOL/L (135-145); TOTAL PROTEIN 6.2 GM/DL (6.4-8.2); TRIGLYCERIDES 83 MG/DL (<150)
== END ==
LOC: LABNPT 18:38
PROVIDERS: ATTEND Internal Medicine Gastroenterology
DX: K50.819 Crohn's disease of both small and large intestine with unspecified complications (principal)
CPT/HCPCS: 80053; 83735; 84100; 84134; 84478; 85007; 85027

== ENCOUNTER → 2016-12-21 | Outpatient (CLI) | payer MEDICARE, BC ==
[2016-12-21 12:36] LABS: BASOPHILS # (AUTO) 0.1 10^3/uL (0.0-0.1); BASOPHILS % (AUTO) 1 % (0-10); EOSINOPHILS # (AUTO) 0.1 10^3/uL (0.0-0.3); EOSINOPHILS % (AUTO) 2 % (0-10); LYMPHOCYTES # (AUTO) 1.2 X 10^3 (1.0-4.0); LYMPHOCYTES % (AUTO) 13 % (12-44); MEAN CORPUSCULAR HEMOGLOBIN 23 PG (25-34); MEAN CORPUSCULAR HGB CONC 30 G/DL (32-36); MEAN CORPUSCULAR VOLUME 76 FL (80-99); MEAN PLATELET VOLUME 9.8 FL (7.4-10.4); MONOCYTES # (AUTO) 1.1 X 10^3 (0.0-1.0); MONOCYTES % (AUTO) 12 % (0-12); NEUTROPHILS # (AUTO) 6.3 X 10^3 (1.8-7.8); NEUTROPHILS % (AUTO) 72 % (42-75); PLATELET COUNT 351 10^3/uL (130-400); RED CELL DISTRIBUTION WIDTH 21.5 % (10.0-14.5); WHITE BLOOD COUNT 8.7 10^3/uL (4.3-11.0)
[2016-12-21 12:57] LABS: ALANINE AMINOTRANSFERASE 10 U/L (0-55); ANION GAP 13 MMOL/L (5-14); ASPARTATE AMINO TRANSFERASE 10 U/L (5-34); BILIRUBIN,TOTAL 0.3 MG/DL (0.1-1.0); BLOOD UREA NITROGEN 28 MG/DL (7-18); BUN/CREATININE RATIO 31; CALCIUM 7.9 MG/DL (8.5-10.1); CARBON DIOXIDE 23 MMOL/L (21-32); CHLORIDE 100 MMOL/L (98-107); GFR ESTIMATED > 60; GLUCOSE 89 MG/DL (70-105); MAGNESIUM 1.8 MG/DL (1.8-2.4); PHOSPHORUS 2.6 MG/DL (2.3-4.7); POTASSIUM 4.1 MMOL/L (3.6-5.0); SODIUM 136 MMOL/L (135-145); TOTAL PROTEIN 5.9 GM/DL (6.4-8.2); TRIGLYCERIDES 67 MG/DL (<150)
== END ==
LOC: LABNPT 10:44
PROVIDERS: ATTEND Internal Medicine Gastroenterology
DX: E46 Unspecified protein-calorie malnutrition (principal)
CPT/HCPCS: 80053; 83735; 84100; 84134; 84478; 85025

== ENCOUNTER → 2017-01-25 | Outpatient (CLI) | payer MEDICARE, BC ==
[2017-01-25 12:08] LABS: BASOPHILS # (AUTO) 0.1 10^3/uL (0.0-0.1); BASOPHILS % (AUTO) 1 % (0-10); EOSINOPHILS # (AUTO) 0.1 10^3/uL (0.0-0.3); EOSINOPHILS % (AUTO) 1 % (0-10); LYMPHOCYTES # (AUTO) 1.6 X 10^3 (1.0-4.0); LYMPHOCYTES % (AUTO) 14 % (12-44); MEAN CORPUSCULAR HEMOGLOBIN 24 PG (25-34); MEAN CORPUSCULAR HGB CONC 30 G/DL (32-36); MEAN CORPUSCULAR VOLUME 79 FL (80-99); MEAN PLATELET VOLUME 9.3 FL (7.4-10.4); MONOCYTES # (AUTO) 1.4 X 10^3 (0.0-1.0); MONOCYTES % (AUTO) 12 % (0-12); NEUTROPHILS # (AUTO) 7.9 X 10^3 (1.8-7.8); NEUTROPHILS % (AUTO) 71 % (42-75); PLATELET COUNT 460 10^3/uL (130-400); RED BLOOD COUNT 4.01 10^6/uL (4.35-5.85)
[2017-01-25 12:31] LABS: ALANINE AMINOTRANSFERASE < 6 U/L (0-55); ALBUMIN 3.4 GM/DL (3.2-4.5); ANION GAP 8 MMOL/L (5-14); ASPARTATE AMINO TRANSFERASE 12 U/L (5-34); BILIRUBIN,TOTAL 0.3 MG/DL (0.1-1.0); BLOOD UREA NITROGEN 31 MG/DL (7-18); BUN/CREATININE RATIO 25; CALCIUM 8.6 MG/DL (8.5-10.1); CARBON DIOXIDE 20 MMOL/L (21-32); CHLORIDE 104 MMOL/L (98-107); CREATININE SERUM 1.23 MG/DL (0.60-1.30); GFR ESTIMATED 59; GLUCOSE 95 MG/DL (70-105); POTASSIUM 3.5 MMOL/L (3.6-5.0); SODIUM 132 MMOL/L (135-145)
== END ==
LOC: HH 11:05
PROVIDERS: ATTEND Internal Medicine Infectious Disease
DX: K50.00 Crohn's disease of small intestine without complications (principal); T80.212D Local infection due to central venous catheter, subsequent encounter

== ENCOUNTER → 2017-02-01 | Outpatient (CLI) | payer MEDICARE, BC ==
[2017-01-25 12:08] LABS: BASOPHILS # (AUTO) 0.1 10^3/uL (0.0-0.1); BASOPHILS % (AUTO) 1 % (0-10); EOSINOPHILS # (AUTO) 0.1 10^3/uL (0.0-0.3); EOSINOPHILS % (AUTO) 1 % (0-10); LYMPHOCYTES # (AUTO) 1.6 X 10^3 (1.0-4.0); LYMPHOCYTES % (AUTO) 14 % (12-44); MEAN CORPUSCULAR HEMOGLOBIN 24 PG (25-34); MEAN CORPUSCULAR HGB CONC 30 G/DL (32-36); MEAN CORPUSCULAR VOLUME 79 FL (80-99); MEAN PLATELET VOLUME 9.3 FL (7.4-10.4); MONOCYTES # (AUTO) 1.4 X 10^3 (0.0-1.0); MONOCYTES % (AUTO) 12 % (0-12); NEUTROPHILS # (AUTO) 7.9 X 10^3 (1.8-7.8); NEUTROPHILS % (AUTO) 71 % (42-75); PLATELET COUNT 460 10^3/uL (130-400); RED BLOOD COUNT 4.01 10^6/uL (4.35-5.85)
[2017-01-25 12:31] LABS: ALANINE AMINOTRANSFERASE < 6 U/L (0-55); ALBUMIN 3.4 GM/DL (3.2-4.5); ANION GAP 8 MMOL/L (5-14); ASPARTATE AMINO TRANSFERASE 12 U/L (5-34); BILIRUBIN,TOTAL 0.3 MG/DL (0.1-1.0); BLOOD UREA NITROGEN 31 MG/DL (7-18); BUN/CREATININE RATIO 25; CALCIUM 8.6 MG/DL (8.5-10.1); CARBON DIOXIDE 20 MMOL/L (21-32); CHLORIDE 104 MMOL/L (98-107); CREATININE SERUM 1.23 MG/DL (0.60-1.30); GFR ESTIMATED 59; GLUCOSE 95 MG/DL (70-105); POTASSIUM 3.5 MMOL/L (3.6-5.0); SODIUM 132 MMOL/L (135-145)
[2017-02-01 11:27] LABS: BASOPHILS # (AUTO) 0.1 10^3/uL (0.0-0.1); BASOPHILS % (AUTO) 1 % (0-10); EOSINOPHILS # (AUTO) 0.1 10^3/uL (0.0-0.3); EOSINOPHILS % (AUTO) 1 % (0-10); LYMPHOCYTES # (AUTO) 1.7 X 10^3 (1.0-4.0); LYMPHOCYTES % (AUTO) 16 % (12-44); MEAN CORPUSCULAR HEMOGLOBIN 24 PG (25-34); MEAN CORPUSCULAR HGB CONC 30 G/DL (32-36); MEAN CORPUSCULAR VOLUME 80 FL (80-99); MONOCYTES # (AUTO) 1.2 X 10^3 (0.0-1.0); MONOCYTES % (AUTO) 11 % (0-12); NEUTROPHILS # (AUTO) 7.6 X 10^3 (1.8-7.8); NEUTROPHILS % (AUTO) 72 % (42-75); PLATELET COUNT 350 10^3/uL (130-400); RED BLOOD COUNT 4.18 10^6/uL (4.35-5.85); RED CELL DISTRIBUTION WIDTH 18.7 % (10.0-14.5); WHITE BLOOD COUNT 10.7 10^3/uL (4.3-11.0)
[2017-02-01 11:49] LABS: ALANINE AMINOTRANSFERASE 10 U/L (0-55); ANION GAP 7 MMOL/L (5-14); ASPARTATE AMINO TRANSFERASE 11 U/L (5-34); BILIRUBIN,TOTAL 0.4 MG/DL (0.1-1.0); BLOOD UREA NITROGEN 25 MG/DL (7-18); BUN/CREATININE RATIO 23; CALCIUM 8.2 MG/DL (8.5-10.1); CARBON DIOXIDE 24 MMOL/L (21-32); CHLORIDE 100 MMOL/L (98-107); GFR ESTIMATED > 60; GLUCOSE 103 MG/DL (70-105); MAGNESIUM 1.6 MG/DL (1.8-2.4); POTASSIUM 3.6 MMOL/L (3.6-5.0); SODIUM 131 MMOL/L (135-145); TOTAL PROTEIN 6.1 GM/DL (6.4-8.2)
== END ==
LOC: HH 11:21
PROVIDERS: ATTEND Internal Medicine Infectious Disease
DX: K50.00 Crohn's disease of small intestine without complications (principal); T80.212D Local infection due to central venous catheter, subsequent encounter
CPT/HCPCS: 80053; 82607; 82746; 83735; 85025

== ENCOUNTER → 2017-02-11 | Outpatient (CLI) | payer MEDICARE, BC | LOC: HH 10:00 | PROVIDERS: ATTEND Internal Medicine Infectious Disease | DX: T80.212D Local infection due to central venous catheter, subsequent encounter (principal) | CPT/HCPCS: 87040 ==

== ENCOUNTER 2017-04-12 07:00 | Outpatient (RCR) | payer MEDICARE ==
[2017-04-12 10:22] LABS: BASOPHILS % (AUTO) 1 % (0-10); EOSINOPHILS % (AUTO) 1 % (0-10); HEMATOCRIT 23 % (40-54); HEMOGLOBIN 7.1 G/DL (13.3-17.7); LYMPHOCYTES # (AUTO) 1.3 X 10^3 (1.0-4.0); LYMPHOCYTES % (AUTO) 22 % (12-44); MEAN CORPUSCULAR HEMOGLOBIN 31 PG (25-34); MEAN CORPUSCULAR HGB CONC 31 G/DL (32-36); MEAN CORPUSCULAR VOLUME 98 FL (80-99); MEAN PLATELET VOLUME 9.1 FL (7.4-10.4); MONOCYTES # (AUTO) 0.9 X 10^3 (0.0-1.0); MONOCYTES % (AUTO) 16 % (0-12); NEUTROPHILS # (AUTO) 3.6 X 10^3 (1.8-7.8); NEUTROPHILS % (AUTO) 62 % (42-75); PLATELET COUNT 329 10^3/uL (130-400); RED BLOOD COUNT 2.33 10^6/uL (4.35-5.85); RED CELL DISTRIBUTION WIDTH 20.3 % (10.0-14.5); WHITE BLOOD COUNT 5.9 10^3/uL (4.3-11.0)
[2017-04-12 10:34] LABS: ALANINE AMINOTRANSFERASE 68 U/L (0-55); ALBUMIN 2.5 GM/DL (3.2-4.5); ALKALINE PHOSPHATASE 143 U/L (40-136); BILIRUBIN,TOTAL 0.3 MG/DL (0.1-1.0); BUN/CREATININE RATIO 55; CALCIUM 8.1 MG/DL (8.5-10.1); CARBON DIOXIDE 23 MMOL/L (21-32); CHLORIDE 105 MMOL/L (98-107); CREATININE SERUM 0.71 MG/DL (0.60-1.30); GFR ESTIMATED > 60; GLUCOSE 91 MG/DL (70-105); MAGNESIUM 1.8 MG/DL (1.8-2.4); PHOSPHORUS 1.9 MG/DL (2.3-4.7); POTASSIUM 4.7 MMOL/L (3.6-5.0); SODIUM 136 MMOL/L (135-145); TOTAL PROTEIN 5.4 GM/DL (6.4-8.2)
== END 2017-07-11 | disposition home or self-care (01) ==
LOC: LAB 07:00
PROVIDERS: ATTEND Family Medicine
DX: K50.80 Crohn's disease of both small and large intestine without complications (principal); E43 Unspecified severe protein-calorie malnutrition; D64.9 Anemia, unspecified; R53.83 Other fatigue
CPT/HCPCS: 36415; 80053; 83735; 84100; 85025

== ENCOUNTER → 2017-04-21 | Outpatient (CLI) | payer MEDICARE, BC ==
[2017-04-21 12:35] LABS: BASOPHILS # (AUTO) 0.1 10^3/uL (0.0-0.1); BASOPHILS % (AUTO) 1 % (0-10); EOSINOPHILS # (AUTO) 0.1 10^3/uL (0.0-0.3); EOSINOPHILS % (AUTO) 2 % (0-10); HEMATOCRIT 31 % (40-54); HEMOGLOBIN 9.8 G/DL (13.3-17.7); LYMPHOCYTES # (AUTO) 0.9 X 10^3 (1.0-4.0); LYMPHOCYTES % (AUTO) 15 % (12-44); MEAN CORPUSCULAR HEMOGLOBIN 30 PG (25-34); MEAN CORPUSCULAR HGB CONC 31 G/DL (32-36); MEAN CORPUSCULAR VOLUME 96 FL (80-99); MEAN PLATELET VOLUME 9.2 FL (7.4-10.4); MONOCYTES % (AUTO) 15 % (0-12); NEUTROPHILS # (AUTO) 4.3 X 10^3 (1.8-7.8); NEUTROPHILS % (AUTO) 68 % (42-75); PLATELET COUNT 435 10^3/uL (130-400); RED BLOOD COUNT 3.27 10^6/uL (4.35-5.85); RED CELL DISTRIBUTION WIDTH 16.1 % (10.0-14.5); WHITE BLOOD COUNT 6.4 10^3/uL (4.3-11.0)
[2017-04-21 12:49] LABS: ALANINE AMINOTRANSFERASE 38 U/L (0-55); ALKALINE PHOSPHATASE 89 U/L (40-136); BILIRUBIN,TOTAL 0.3 MG/DL (0.1-1.0); BUN/CREATININE RATIO 50; CALCIUM 8.6 MG/DL (8.5-10.1); CARBON DIOXIDE 20 MMOL/L (21-32); CHLORIDE 104 MMOL/L (98-107); GFR ESTIMATED > 60; GLUCOSE 100 MG/DL (70-105); MAGNESIUM 1.7 MG/DL (1.8-2.4); PHOSPHORUS 3.9 MG/DL (2.3-4.7); POTASSIUM 4.1 MMOL/L (3.6-5.0); SODIUM 135 MMOL/L (135-145); TOTAL PROTEIN 5.8 GM/DL (6.4-8.2)
== END ==
LOC: HH 04-15 07:00
PROVIDERS: ATTEND Surgery
DX: K50.80 Crohn's disease of both small and large intestine without complications (principal); E43 Unspecified severe protein-calorie malnutrition; D64.9 Anemia, unspecified; R53.83 Other fatigue
CPT/HCPCS: 80053; 83735; 84100; 85025

== ENCOUNTER → 2017-04-23 | Outpatient (CLI) | payer MEDICARE, BC ==
[2017-04-23 15:53] LABS: BASOPHILS % (AUTO) 0 % (0-10); EOSINOPHILS % (AUTO) 0 % (0-10); HEMATOCRIT 28 % (40-54); HEMOGLOBIN 9.7 G/DL (13.3-17.7); LYMPHOCYTES # (AUTO) 0.5 X 10^3 (1.0-4.0); LYMPHOCYTES % (AUTO) 6 % (12-44); MEAN CORPUSCULAR HEMOGLOBIN 30 PG (25-34); MEAN CORPUSCULAR HGB CONC 34 G/DL (32-36); MEAN CORPUSCULAR VOLUME 87 FL (80-99); MEAN PLATELET VOLUME 8.8 FL (7.4-10.4); MONOCYTES # (AUTO) 0.6 X 10^3 (0.0-1.0); MONOCYTES % (AUTO) 7 % (0-12); NEUTROPHILS # (AUTO) 6.9 X 10^3 (1.8-7.8); NEUTROPHILS % (AUTO) 86 % (42-75); PLATELET COUNT 423 10^3/uL (130-400); RED BLOOD COUNT 3.25 10^6/uL (4.35-5.85); RED CELL DISTRIBUTION WIDTH 14.9 % (10.0-14.5)
[2017-04-23 16:11] LABS: ALANINE AMINOTRANSFERASE 31 U/L (0-55); ALBUMIN 3.1 GM/DL (3.2-4.5); ALKALINE PHOSPHATASE 69 U/L (40-136); BILIRUBIN,TOTAL 0.2 MG/DL (0.1-1.0); BUN/CREATININE RATIO 54; CALCIUM 8.7 MG/DL (8.5-10.1); CARBON DIOXIDE 22 MMOL/L (21-32); CHLORIDE 100 MMOL/L (98-107); CREATININE SERUM 0.78 MG/DL (0.60-1.30); GFR ESTIMATED > 60; GLUCOSE 94 MG/DL (70-105); MAGNESIUM 1.7 MG/DL (1.8-2.4); POTASSIUM 4.6 MMOL/L (3.6-5.0); SODIUM 133 MMOL/L (135-145)
[2017-04-23 16:12] LABS: ANISOCYTOSIS SLIGHT; BAND NEUTROPHILS 17 %; BASOPHILS % (MANUAL) 0 %; EOSINOPHILS % (MANUAL) 0 %; LYMPHOCYTES % (MANUAL) 7 %; METAMYELOCYTES % 3 %; MONOCYTES % (MANUAL) 1 %; MYELOCYTES % 2 %; NEUTROPHILS % (MANUAL) 70 %
== END ==
LOC: HH 07:00
PROVIDERS: ATTEND Internal Medicine Gastroenterology
DX: K50.90 Crohn's disease, unspecified, without complications (principal); E43 Unspecified severe protein-calorie malnutrition
CPT/HCPCS: 80053; 83735; 84100; 84134; 85007; 85025; 85027

== ENCOUNTER → 2017-04-26 | Outpatient (CLI) | payer MEDICARE, BC ==
[2017-04-26 11:38] LABS: HEMATOCRIT 32 % (40-54); HEMOGLOBIN 9.3 G/DL (13.3-17.7); MEAN CORPUSCULAR HEMOGLOBIN 29 PG (25-34); MEAN CORPUSCULAR VOLUME 100 FL (80-99); RED BLOOD COUNT 3.18 10^6/uL (4.35-5.85); WHITE BLOOD COUNT 10.8 10^3/uL (4.3-11.0)
[2017-04-26 11:39] LABS: BASOPHILS # (AUTO) 0.1 10^3/uL (0.0-0.1); BASOPHILS % (AUTO) 1 % (0-10); EOSINOPHILS # (AUTO) 0.1 10^3/uL (0.0-0.3); EOSINOPHILS % (AUTO) 1 % (0-10); LYMPHOCYTES # (AUTO) 0.9 X 10^3 (1.0-4.0); LYMPHOCYTES % (AUTO) 8 % (12-44); MEAN CORPUSCULAR HGB CONC 29 G/DL (32-36); MEAN PLATELET VOLUME 9.2 FL (7.4-10.4); MONOCYTES # (AUTO) 1.1 X 10^3 (0.0-1.0); MONOCYTES % (AUTO) 11 % (0-12); NEUTROPHILS # (AUTO) 8.6 X 10^3 (1.8-7.8); NEUTROPHILS % (AUTO) 80 % (42-75); PLATELET COUNT 454 10^3/uL (130-400); RED CELL DISTRIBUTION WIDTH 15.3 % (10.0-14.5)
[2017-04-26 11:55] LABS: ALANINE AMINOTRANSFERASE 29 U/L (0-55); ALBUMIN 2.9 GM/DL (3.2-4.5); ALKALINE PHOSPHATASE 58 U/L (40-136); BILIRUBIN,TOTAL 0.2 MG/DL (0.1-1.0); BUN/CREATININE RATIO 58; CALCIUM 8.5 MG/DL (8.5-10.1); CARBON DIOXIDE 24 MMOL/L (21-32); CHLORIDE 103 MMOL/L (98-107); CREATININE SERUM 0.77 MG/DL (0.60-1.30); GFR ESTIMATED > 60; GLUCOSE 94 MG/DL (70-105); MAGNESIUM 1.6 MG/DL (1.8-2.4); PHOSPHORUS 3.3 MG/DL (2.3-4.7); POTASSIUM 4.2 MMOL/L (3.6-5.0); SODIUM 135 MMOL/L (135-145); TOTAL PROTEIN 5.6 GM/DL (6.4-8.2)
== END ==
LOC: HH 07:00
PROVIDERS: ATTEND Surgery
DX: K50.90 Crohn's disease, unspecified, without complications (principal); E43 Unspecified severe protein-calorie malnutrition
CPT/HCPCS: 80053; 83735; 84100; 84134; 85025

== ENCOUNTER → 2017-04-28 | Outpatient (CLI) | payer MEDICARE, BC ==
[2017-04-29 10:38] LABS: BASOPHILS # (AUTO) 0.1 10^3/uL (0.0-0.1); BASOPHILS % (AUTO) 1 % (0-10); EOSINOPHILS # (AUTO) 0.1 10^3/uL (0.0-0.3); EOSINOPHILS % (AUTO) 1 % (0-10); HEMATOCRIT 29 % (40-54); HEMOGLOBIN 9.3 G/DL (13.3-17.7); LYMPHOCYTES % (AUTO) 9 % (12-44); MEAN CORPUSCULAR HEMOGLOBIN 30 PG (25-34); MEAN CORPUSCULAR HGB CONC 32 G/DL (32-36); MEAN CORPUSCULAR VOLUME 94 FL (80-99); MEAN PLATELET VOLUME 9.2 FL (7.4-10.4); MONOCYTES % (AUTO) 9 % (0-12); NEUTROPHILS # (AUTO) 8.5 X 10^3 (1.8-7.8); NEUTROPHILS % (AUTO) 81 % (42-75); PLATELET COUNT 432 10^3/uL (130-400); RED BLOOD COUNT 3.06 10^6/uL (4.35-5.85); RED CELL DISTRIBUTION WIDTH 14.8 % (10.0-14.5); WHITE BLOOD COUNT 10.6 10^3/uL (4.3-11.0)
[2017-04-29 10:54] LABS: ALANINE AMINOTRANSFERASE 35 U/L (0-55); ALBUMIN 3.1 GM/DL (3.2-4.5); ALKALINE PHOSPHATASE 55 U/L (40-136); BILIRUBIN,TOTAL 0.2 MG/DL (0.1-1.0); BUN/CREATININE RATIO 64; CALCIUM 8.8 MG/DL (8.5-10.1); CARBON DIOXIDE 24 MMOL/L (21-32); CHLORIDE 101 MMOL/L (98-107); CREATININE SERUM 0.75 MG/DL (0.60-1.30); GFR ESTIMATED > 60; GLUCOSE 99 MG/DL (70-105); MAGNESIUM 1.8 MG/DL (1.8-2.4); POTASSIUM 4.1 MMOL/L (3.6-5.0); SODIUM 134 MMOL/L (135-145); TOTAL PROTEIN 5.8 GM/DL (6.4-8.2)
== END ==
LOC: HH 07:00
PROVIDERS: ATTEND Surgery
DX: K50.90 Crohn's disease, unspecified, without complications (principal); E43 Unspecified severe protein-calorie malnutrition

== ENCOUNTER → 2017-05-03 | Outpatient (CLI) | payer MEDICARE, BC ==
[2017-05-03 14:26] LABS: BASOPHILS % (AUTO) 0 % (0-10); EOSINOPHILS # (AUTO) 0.1 10^3/uL (0.0-0.3); EOSINOPHILS % (AUTO) 1 % (0-10); HEMATOCRIT 28 % (40-54); HEMOGLOBIN 9.2 G/DL (13.3-17.7); LYMPHOCYTES # (AUTO) 1.3 X 10^3 (1.0-4.0); LYMPHOCYTES % (AUTO) 12 % (12-44); MEAN CORPUSCULAR HEMOGLOBIN 30 PG (25-34); MEAN CORPUSCULAR HGB CONC 32 G/DL (32-36); MEAN CORPUSCULAR VOLUME 94 FL (80-99); MEAN PLATELET VOLUME 9.7 FL (7.4-10.4); MONOCYTES # (AUTO) 1.4 X 10^3 (0.0-1.0); MONOCYTES % (AUTO) 13 % (0-12); NEUTROPHILS # (AUTO) 8.6 X 10^3 (1.8-7.8); NEUTROPHILS % (AUTO) 75 % (42-75); PLATELET COUNT 350 10^3/uL (130-400); RED BLOOD COUNT 3.03 10^6/uL (4.35-5.85); RED CELL DISTRIBUTION WIDTH 14.5 % (10.0-14.5); WHITE BLOOD COUNT 11.4 10^3/uL (4.3-11.0)
[2017-05-03 15:05] LABS: ALANINE AMINOTRANSFERASE 36 U/L (0-55); ALKALINE PHOSPHATASE 57 U/L (40-136); BILIRUBIN,TOTAL 0.2 MG/DL (0.1-1.0); BUN/CREATININE RATIO 63; CALCIUM 8.5 MG/DL (8.5-10.1); CARBON DIOXIDE 23 MMOL/L (21-32); CHLORIDE 102 MMOL/L (98-107); CREATININE SERUM 0.75 MG/DL (0.60-1.30); GFR ESTIMATED > 60; GLUCOSE 86 MG/DL (70-105); MAGNESIUM 1.8 MG/DL (1.8-2.4); PHOSPHORUS 3.5 MG/DL (2.3-4.7); POTASSIUM 4.3 MMOL/L (3.6-5.0); SODIUM 134 MMOL/L (135-145); TOTAL PROTEIN 5.5 GM/DL (6.4-8.2)
== END ==
LOC: HH 07:00
PROVIDERS: ATTEND Surgery
DX: K50.90 Crohn's disease, unspecified, without complications (principal); E43 Unspecified severe protein-calorie malnutrition
CPT/HCPCS: 80053; 83735; 84100; 84134; 85025

== ENCOUNTER → 2017-05-06 | Outpatient (CLI) | payer MEDICARE, BC ==
[2017-05-06 14:37] LABS: BASOPHILS % (AUTO) 0 % (0-10); EOSINOPHILS % (AUTO) 0 % (0-10); HEMATOCRIT 30 % (40-54); HEMOGLOBIN 9.6 G/DL (13.3-17.7); LYMPHOCYTES # (AUTO) 0.8 X 10^3 (1.0-4.0); LYMPHOCYTES % (AUTO) 7 % (12-44); MEAN CORPUSCULAR HEMOGLOBIN 30 PG (25-34); MEAN CORPUSCULAR HGB CONC 32 G/DL (32-36); MEAN CORPUSCULAR VOLUME 93 FL (80-99); MEAN PLATELET VOLUME 9.8 FL (7.4-10.4); MONOCYTES # (AUTO) 0.6 X 10^3 (0.0-1.0); MONOCYTES % (AUTO) 5 % (0-12); NEUTROPHILS # (AUTO) 9.3 X 10^3 (1.8-7.8); NEUTROPHILS % (AUTO) 87 % (42-75); PLATELET COUNT 345 10^3/uL (130-400); RED BLOOD COUNT 3.19 10^6/uL (4.35-5.85); RED CELL DISTRIBUTION WIDTH 14.3 % (10.0-14.5); WHITE BLOOD COUNT 10.7 10^3/uL (4.3-11.0)
[2017-05-06 15:07] LABS: ALANINE AMINOTRANSFERASE 40 U/L (0-55); ALBUMIN 3.2 GM/DL (3.2-4.5); ALKALINE PHOSPHATASE 63 U/L (40-136); BILIRUBIN,TOTAL 0.2 MG/DL (0.1-1.0); BUN/CREATININE RATIO 54; CALCIUM 8.6 MG/DL (8.5-10.1); CARBON DIOXIDE 21 MMOL/L (21-32); CHLORIDE 105 MMOL/L (98-107); CREATININE SERUM 0.89 MG/DL (0.60-1.30); GFR ESTIMATED > 60; GLUCOSE 112 MG/DL (70-105); MAGNESIUM 1.8 MG/DL (1.8-2.4); PHOSPHORUS 3.9 MG/DL (2.3-4.7); POTASSIUM 4.7 MMOL/L (3.6-5.0); SODIUM 135 MMOL/L (135-145); TOTAL PROTEIN 6.1 GM/DL (6.4-8.2)
[2017-05-06 15:19] LABS: BAND NEUTROPHILS 4 %; BASOPHILS % (MANUAL) 0 %; EOSINOPHILS % (MANUAL) 1 %; HYPOCHROMASIA SLIGHT; LYMPHOCYTES % (MANUAL) 14 %; METAMYELOCYTES % 1 %; MONOCYTES % (MANUAL) 1 %; NEUTROPHILS % (MANUAL) 79 %; SPHEROCYTES SLIGHT
== END ==
LOC: LAB 07:00
PROVIDERS: ATTEND Surgery
DX: K50.90 Crohn's disease, unspecified, without complications (principal); E43 Unspecified severe protein-calorie malnutrition
CPT/HCPCS: 36415; 80053; 83735; 84100; 84134; 85007; 85027

== ENCOUNTER → 2017-05-10 | Outpatient (CLI) | payer MEDICARE, BC ==
[2017-05-10 11:03] LABS: BASOPHILS % (AUTO) 0 % (0-10); EOSINOPHILS # (AUTO) 0.1 10^3/uL (0.0-0.3); EOSINOPHILS % (AUTO) 1 % (0-10); HEMATOCRIT 30 % (40-54); HEMOGLOBIN 9.9 G/DL (13.3-17.7); LYMPHOCYTES # (AUTO) 1.2 X 10^3 (1.0-4.0); LYMPHOCYTES % (AUTO) 13 % (12-44); MEAN CORPUSCULAR HEMOGLOBIN 30 PG (25-34); MEAN CORPUSCULAR HGB CONC 33 G/DL (32-36); MEAN CORPUSCULAR VOLUME 91 FL (80-99); MEAN PLATELET VOLUME 9.4 FL (7.4-10.4); MONOCYTES # (AUTO) 1.2 X 10^3 (0.0-1.0); MONOCYTES % (AUTO) 13 % (0-12); NEUTROPHILS # (AUTO) 6.9 X 10^3 (1.8-7.8); NEUTROPHILS % (AUTO) 73 % (42-75); PLATELET COUNT 333 10^3/uL (130-400); RED BLOOD COUNT 3.32 10^6/uL (4.35-5.85); RED CELL DISTRIBUTION WIDTH 14.3 % (10.0-14.5); WHITE BLOOD COUNT 9.4 10^3/uL (4.3-11.0)
[2017-05-10 11:20] LABS: ALANINE AMINOTRANSFERASE 26 U/L (0-55); ALBUMIN 3.1 GM/DL (3.2-4.5); ALKALINE PHOSPHATASE 65 U/L (40-136); BILIRUBIN,TOTAL 0.3 MG/DL (0.1-1.0); BUN/CREATININE RATIO 62; CALCIUM 8.8 MG/DL (8.5-10.1); CARBON DIOXIDE 22 MMOL/L (21-32); CHLORIDE 102 MMOL/L (98-107); CREATININE SERUM 0.79 MG/DL (0.60-1.30); GFR ESTIMATED > 60; GLUCOSE 105 MG/DL (70-105); MAGNESIUM 1.9 MG/DL (1.8-2.4); PHOSPHORUS 4.3 MG/DL (2.3-4.7); POTASSIUM 4.3 MMOL/L (3.6-5.0); SODIUM 134 MMOL/L (135-145)
== END ==
LOC: HH 07:00
PROVIDERS: ATTEND Internal Medicine Gastroenterology
DX: K50.90 Crohn's disease, unspecified, without complications (principal); E43 Unspecified severe protein-calorie malnutrition
CPT/HCPCS: 80053; 83735; 84100; 84134; 85025

== ENCOUNTER → 2017-05-20 | Outpatient (CLI) | payer MEDICARE, BC ==
[2017-05-20 10:44] LABS: BASOPHILS # (AUTO) 0.1 10^3/uL (0.0-0.1); BASOPHILS % (AUTO) 1 % (0-10); EOSINOPHILS # (AUTO) 0.2 10^3/uL (0.0-0.3); EOSINOPHILS % (AUTO) 2 % (0-10); HEMATOCRIT 28 % (40-54); HEMOGLOBIN 8.7 G/DL (13.3-17.7); LYMPHOCYTES # (AUTO) 1.8 X 10^3 (1.0-4.0); LYMPHOCYTES % (AUTO) 16 % (12-44); MEAN CORPUSCULAR HEMOGLOBIN 29 PG (25-34); MEAN CORPUSCULAR HGB CONC 31 G/DL (32-36); MEAN CORPUSCULAR VOLUME 92 FL (80-99); MEAN PLATELET VOLUME 9.3 FL (7.4-10.4); MONOCYTES # (AUTO) 1.1 X 10^3 (0.0-1.0); MONOCYTES % (AUTO) 9 % (0-12); NEUTROPHILS # (AUTO) 8.5 X 10^3 (1.8-7.8); NEUTROPHILS % (AUTO) 72 % (42-75); PLATELET COUNT 410 10^3/uL (130-400); RED BLOOD COUNT 3.01 10^6/uL (4.35-5.85); WHITE BLOOD COUNT 11.7 10^3/uL (4.3-11.0)
[2017-05-20 11:03] LABS: ALANINE AMINOTRANSFERASE 52 U/L (0-55); ALBUMIN 3.4 GM/DL (3.2-4.5); ALKALINE PHOSPHATASE 211 U/L (40-136); BILIRUBIN,TOTAL 0.2 MG/DL (0.1-1.0); BUN/CREATININE RATIO 73; CALCIUM 9.1 MG/DL (8.5-10.1); CARBON DIOXIDE 24 MMOL/L (21-32); CHLORIDE 101 MMOL/L (98-107); GFR ESTIMATED > 60; GLUCOSE 103 MG/DL (70-105); POTASSIUM 3.9 MMOL/L (3.6-5.0); SODIUM 135 MMOL/L (135-145); TOTAL PROTEIN 6.4 GM/DL (6.4-8.2)
== END ==
LOC: HH 07:00
PROVIDERS: ATTEND Internal Medicine Gastroenterology
DX: K50.90 Crohn's disease, unspecified, without complications (principal); E43 Unspecified severe protein-calorie malnutrition
CPT/HCPCS: 80053; 83735; 84100; 84134; 85025

== ENCOUNTER → 2017-05-24 | Outpatient (CLI) | payer MEDICARE ==
[2017-05-24 11:55] LABS: BASOPHILS % (AUTO) 1 % (0-10); EOSINOPHILS # (AUTO) 0.1 10^3/uL (0.0-0.3); EOSINOPHILS % (AUTO) 2 % (0-10); HEMATOCRIT 47 % (40-54); HEMOGLOBIN 14.8 G/DL (13.3-17.7); LYMPHOCYTES # (AUTO) 0.8 X 10^3 (1.0-4.0); LYMPHOCYTES % (AUTO) 16 % (12-44); MEAN CORPUSCULAR HEMOGLOBIN 29 PG (25-34); MEAN CORPUSCULAR HGB CONC 32 G/DL (32-36); MEAN CORPUSCULAR VOLUME 91 FL (80-99); MEAN PLATELET VOLUME 9.2 FL (7.4-10.4); MONOCYTES # (AUTO) 0.5 X 10^3 (0.0-1.0); MONOCYTES % (AUTO) 10 % (0-12); NEUTROPHILS # (AUTO) 3.4 X 10^3 (1.8-7.8); NEUTROPHILS % (AUTO) 71 % (42-75); PLATELET COUNT 220 10^3/uL (130-400); RED BLOOD COUNT 5.12 10^6/uL (4.35-5.85); RED CELL DISTRIBUTION WIDTH 16.6 % (10.0-14.5); WHITE BLOOD COUNT 4.8 10^3/uL (4.3-11.0)
[2017-05-24 12:15] LABS: ALANINE AMINOTRANSFERASE 55 U/L (0-55); ALBUMIN 3.5 GM/DL (3.2-4.5); ALKALINE PHOSPHATASE 154 U/L (40-136); BILIRUBIN,TOTAL 0.3 MG/DL (0.1-1.0); BUN/CREATININE RATIO 67; CALCIUM 9.2 MG/DL (8.5-10.1); CARBON DIOXIDE 23 MMOL/L (21-32); CHLORIDE 103 MMOL/L (98-107); CREATININE SERUM 0.81 MG/DL (0.60-1.30); GFR ESTIMATED > 60; GLUCOSE 102 MG/DL (70-105); PHOSPHORUS 4.6 MG/DL (2.3-4.7); POTASSIUM 4.3 MMOL/L (3.6-5.0); SODIUM 137 MMOL/L (135-145); TOTAL PROTEIN 6.5 GM/DL (6.4-8.2)
== END ==
LOC: HH 07:00
PROVIDERS: ATTEND Internal Medicine Gastroenterology
DX: K50.90 Crohn's disease, unspecified, without complications (principal); E43 Unspecified severe protein-calorie malnutrition
CPT/HCPCS: 80053; 83735; 84100; 84134; 85025

== ENCOUNTER → 2017-05-27 | Outpatient (CLI) | payer MEDICARE ==
[2017-05-27 11:38] LABS: BASOPHILS # (AUTO) 0.1 10^3/uL (0.0-0.1); BASOPHILS % (AUTO) 1 % (0-10); EOSINOPHILS # (AUTO) 0.1 10^3/uL (0.0-0.3); EOSINOPHILS % (AUTO) 1 % (0-10); HEMATOCRIT 32 % (40-54); HEMOGLOBIN 10.2 G/DL (13.3-17.7); LYMPHOCYTES # (AUTO) 1.6 X 10^3 (1.0-4.0); LYMPHOCYTES % (AUTO) 20 % (12-44); MEAN CORPUSCULAR HEMOGLOBIN 29 PG (25-34); MEAN CORPUSCULAR HGB CONC 32 G/DL (32-36); MEAN CORPUSCULAR VOLUME 92 FL (80-99); MEAN PLATELET VOLUME 9.8 FL (7.4-10.4); MONOCYTES # (AUTO) 1.1 X 10^3 (0.0-1.0); MONOCYTES % (AUTO) 14 % (0-12); NEUTROPHILS % (AUTO) 64 % (42-75); PLATELET COUNT 375 10^3/uL (130-400); RED BLOOD COUNT 3.51 10^6/uL (4.35-5.85); RED CELL DISTRIBUTION WIDTH 15.7 % (10.0-14.5); WHITE BLOOD COUNT 7.9 10^3/uL (4.3-11.0)
[2017-05-27 11:56] LABS: ALANINE AMINOTRANSFERASE 38 U/L (0-55); ALBUMIN 3.7 GM/DL (3.2-4.5); ALKALINE PHOSPHATASE 109 U/L (40-136); BILIRUBIN,TOTAL 0.2 MG/DL (0.1-1.0); BUN/CREATININE RATIO 60; CALCIUM 9.5 MG/DL (8.5-10.1); CARBON DIOXIDE 25 MMOL/L (21-32); CHLORIDE 102 MMOL/L (98-107); CREATININE SERUM 0.87 MG/DL (0.60-1.30); GFR ESTIMATED > 60; GLUCOSE 109 MG/DL (70-105); PHOSPHORUS 4.7 MG/DL (2.3-4.7); POTASSIUM 4.4 MMOL/L (3.6-5.0); SODIUM 135 MMOL/L (135-145); TOTAL PROTEIN 6.6 GM/DL (6.4-8.2)
== END ==
LOC: HH 07:00
PROVIDERS: ATTEND Family Medicine
DX: K50.90 Crohn's disease, unspecified, without complications (principal); E43 Unspecified severe protein-calorie malnutrition
CPT/HCPCS: 80053; 83735; 84100; 84134; 85025

== ENCOUNTER → 2017-05-31 | Outpatient (CLI) | payer MEDICARE ==
[2017-05-31 17:29] LABS: BASOPHILS % (AUTO) 1 % (0-10); EOSINOPHILS # (AUTO) 0.1 10^3/uL (0.0-0.3); EOSINOPHILS % (AUTO) 1 % (0-10); HEMATOCRIT 33 % (40-54); HEMOGLOBIN 10.4 G/DL (13.3-17.7); LYMPHOCYTES # (AUTO) 0.7 X 10^3 (1.0-4.0); LYMPHOCYTES % (AUTO) 12 % (12-44); MEAN CORPUSCULAR HEMOGLOBIN 29 PG (25-34); MEAN CORPUSCULAR HGB CONC 32 G/DL (32-36); MEAN CORPUSCULAR VOLUME 92 FL (80-99); MEAN PLATELET VOLUME 10.8 FL (7.4-10.4); MONOCYTES # (AUTO) 0.6 X 10^3 (0.0-1.0); MONOCYTES % (AUTO) 9 % (0-12); NEUTROPHILS # (AUTO) 4.9 X 10^3 (1.8-7.8); NEUTROPHILS % (AUTO) 78 % (42-75); PLATELET COUNT 298 10^3/uL (130-400); RED BLOOD COUNT 3.56 10^6/uL (4.35-5.85); RED CELL DISTRIBUTION WIDTH 15.1 % (10.0-14.5); WHITE BLOOD COUNT 6.3 10^3/uL (4.3-11.0)
[2017-05-31 17:41] LABS: ALANINE AMINOTRANSFERASE 51 U/L (0-55); ALBUMIN 3.7 GM/DL (3.2-4.5); ALKALINE PHOSPHATASE 111 U/L (40-136); BILIRUBIN,TOTAL 0.2 MG/DL (0.1-1.0); BUN/CREATININE RATIO 58; CALCIUM 9.3 MG/DL (8.5-10.1); CARBON DIOXIDE 23 MMOL/L (21-32); CHLORIDE 101 MMOL/L (98-107); CREATININE SERUM 0.84 MG/DL (0.60-1.30); GFR ESTIMATED > 60; GLUCOSE 114 MG/DL (70-105); MAGNESIUM 1.9 MG/DL (1.8-2.4); PHOSPHORUS 4.3 MG/DL (2.3-4.7); POTASSIUM 4.8 MMOL/L (3.6-5.0); SODIUM 132 MMOL/L (135-145); TOTAL PROTEIN 6.5 GM/DL (6.4-8.2)
== END ==
LOC: HH 07:00
PROVIDERS: ATTEND Internal Medicine Gastroenterology
DX: K50.90 Crohn's disease, unspecified, without complications (principal); E43 Unspecified severe protein-calorie malnutrition
CPT/HCPCS: 80053; 83735; 84100; 84134; 85025

== ENCOUNTER → 2017-06-03 | Outpatient (CLI) | payer MEDICARE ==
[2017-06-03 10:57] LABS: BASOPHILS # (AUTO) 0.1 10^3/uL (0.0-0.1); BASOPHILS % (AUTO) 1 % (0-10); EOSINOPHILS # (AUTO) 0.1 10^3/uL (0.0-0.3); EOSINOPHILS % (AUTO) 2 % (0-10); HEMATOCRIT 33 % (40-54); HEMOGLOBIN 10.5 G/DL (13.3-17.7); LYMPHOCYTES # (AUTO) 1.6 X 10^3 (1.0-4.0); LYMPHOCYTES % (AUTO) 25 % (12-44); MEAN CORPUSCULAR HEMOGLOBIN 29 PG (25-34); MEAN CORPUSCULAR HGB CONC 31 G/DL (32-36); MEAN CORPUSCULAR VOLUME 92 FL (80-99); MEAN PLATELET VOLUME 10.8 FL (7.4-10.4); MONOCYTES % (AUTO) 15 % (0-12); NEUTROPHILS # (AUTO) 3.7 X 10^3 (1.8-7.8); NEUTROPHILS % (AUTO) 57 % (42-75); PLATELET COUNT 304 10^3/uL (130-400); RED BLOOD COUNT 3.65 10^6/uL (4.35-5.85); WHITE BLOOD COUNT 6.5 10^3/uL (4.3-11.0)
[2017-06-03 11:18] LABS: ALANINE AMINOTRANSFERASE 44 U/L (0-55); ALBUMIN 3.5 GM/DL (3.2-4.5); ALKALINE PHOSPHATASE 96 U/L (40-136); BILIRUBIN,TOTAL 0.2 MG/DL (0.1-1.0); BUN/CREATININE RATIO 67; CARBON DIOXIDE 23 MMOL/L (21-32); CHLORIDE 104 MMOL/L (98-107); CREATININE SERUM 0.79 MG/DL (0.60-1.30); GFR ESTIMATED > 60; GLUCOSE 95 MG/DL (70-105); MAGNESIUM 2.2 MG/DL (1.8-2.4); PHOSPHORUS 3.9 MG/DL (2.3-4.7); SODIUM 138 MMOL/L (135-145); TOTAL PROTEIN 6.2 GM/DL (6.4-8.2)
== END ==
LOC: HH 07:00
PROVIDERS: ATTEND Internal Medicine Gastroenterology
DX: K50.90 Crohn's disease, unspecified, without complications (principal); E46 Unspecified protein-calorie malnutrition
CPT/HCPCS: 80053; 83735; 84100; 84134; 85025

== ENCOUNTER → 2017-06-07 | Outpatient (CLI) | payer MEDICARE ==
[2017-06-07 12:44] LABS: BASOPHILS % (AUTO) 0 % (0-10); EOSINOPHILS # (AUTO) 0.1 10^3/uL (0.0-0.3); EOSINOPHILS % (AUTO) 1 % (0-10); HEMATOCRIT 36 % (40-54); HEMOGLOBIN 11.7 G/DL (13.3-17.7); LYMPHOCYTES # (AUTO) 0.9 X 10^3 (1.0-4.0); LYMPHOCYTES % (AUTO) 13 % (12-44); MEAN CORPUSCULAR HEMOGLOBIN 29 PG (25-34); MEAN CORPUSCULAR HGB CONC 33 G/DL (32-36); MEAN CORPUSCULAR VOLUME 88 FL (80-99); MEAN PLATELET VOLUME 10.7 FL (7.4-10.4); MONOCYTES # (AUTO) 0.6 X 10^3 (0.0-1.0); MONOCYTES % (AUTO) 8 % (0-12); NEUTROPHILS # (AUTO) 5.7 X 10^3 (1.8-7.8); NEUTROPHILS % (AUTO) 78 % (42-75); PLATELET COUNT 302 10^3/uL (130-400); RED BLOOD COUNT 4.04 10^6/uL (4.35-5.85); RED CELL DISTRIBUTION WIDTH 14.6 % (10.0-14.5); WHITE BLOOD COUNT 7.2 10^3/uL (4.3-11.0)
[2017-06-07 13:02] LABS: ALANINE AMINOTRANSFERASE 34 U/L (0-55); ALBUMIN 4.1 GM/DL (3.2-4.5); ALKALINE PHOSPHATASE 98 U/L (40-136); BILIRUBIN,TOTAL 0.3 MG/DL (0.1-1.0); BUN/CREATININE RATIO 54; CALCIUM 9.7 MG/DL (8.5-10.1); CARBON DIOXIDE 25 MMOL/L (21-32); CHLORIDE 96 MMOL/L (98-107); CREATININE SERUM 1.16 MG/DL (0.60-1.30); GFR ESTIMATED > 60; GLUCOSE 115 MG/DL (70-105); MAGNESIUM 2.2 MG/DL (1.8-2.4); PHOSPHORUS 4.7 MG/DL (2.3-4.7); POTASSIUM 5.1 MMOL/L (3.6-5.0); SODIUM 131 MMOL/L (135-145); TOTAL PROTEIN 7.2 GM/DL (6.4-8.2)
== END ==
LOC: HH 07:00
PROVIDERS: ATTEND Internal Medicine Gastroenterology
DX: K50.90 Crohn's disease, unspecified, without complications (principal); E43 Unspecified severe protein-calorie malnutrition
CPT/HCPCS: 80053; 83735; 84100; 84134; 85025

== ENCOUNTER → 2017-06-10 | Outpatient (CLI) | payer MEDICARE ==
[2017-06-10 11:10] LABS: BASOPHILS # (AUTO) 0.1 10^3/uL (0.0-0.1); BASOPHILS % (AUTO) 1 % (0-10); EOSINOPHILS # (AUTO) 0.1 10^3/uL (0.0-0.3); EOSINOPHILS % (AUTO) 1 % (0-10); HEMATOCRIT 33 % (40-54); LYMPHOCYTES # (AUTO) 1.5 X 10^3 (1.0-4.0); LYMPHOCYTES % (AUTO) 15 % (12-44); MEAN CORPUSCULAR HEMOGLOBIN 29 PG (25-34); MEAN CORPUSCULAR HGB CONC 33 G/DL (32-36); MEAN CORPUSCULAR VOLUME 87 FL (80-99); MEAN PLATELET VOLUME 10.8 FL (7.4-10.4); MONOCYTES # (AUTO) 1.1 X 10^3 (0.0-1.0); MONOCYTES % (AUTO) 11 % (0-12); NEUTROPHILS # (AUTO) 7.3 X 10^3 (1.8-7.8); NEUTROPHILS % (AUTO) 72 % (42-75); PLATELET COUNT 258 10^3/uL (130-400); RED BLOOD COUNT 3.83 10^6/uL (4.35-5.85); WHITE BLOOD COUNT 10.1 10^3/uL (4.3-11.0)
[2017-06-10 11:28] LABS: ALANINE AMINOTRANSFERASE 30 U/L (0-55); ALBUMIN 3.8 GM/DL (3.2-4.5); ALKALINE PHOSPHATASE 100 U/L (40-136); BILIRUBIN,TOTAL 0.3 MG/DL (0.1-1.0); BUN/CREATININE RATIO 64; CALCIUM 9.2 MG/DL (8.5-10.1); CARBON DIOXIDE 22 MMOL/L (21-32); CHLORIDE 99 MMOL/L (98-107); CREATININE SERUM 1.06 MG/DL (0.60-1.30); GFR ESTIMATED > 60; GLUCOSE 121 MG/DL (70-105); MAGNESIUM 2.3 MG/DL (1.8-2.4); PHOSPHORUS 4.7 MG/DL (2.3-4.7); POTASSIUM 4.3 MMOL/L (3.6-5.0); SODIUM 132 MMOL/L (135-145)
== END ==
LOC: HH 07:00
PROVIDERS: ATTEND Surgery
DX: K50.90 Crohn's disease, unspecified, without complications (principal); E43 Unspecified severe protein-calorie malnutrition
CPT/HCPCS: 80053; 83735; 84100; 84134; 85025

== ENCOUNTER → 2017-06-14 | Outpatient (CLI) | payer MEDICARE ==
[2017-06-14 14:20] LABS: BASOPHILS # (AUTO) 0.1 10^3/uL (0.0-0.1); BASOPHILS % (AUTO) 1 % (0-10); EOSINOPHILS # (AUTO) 0.1 10^3/uL (0.0-0.3); EOSINOPHILS % (AUTO) 1 % (0-10); HEMATOCRIT 36 % (40-54); HEMOGLOBIN 11.9 G/DL (13.3-17.7); LYMPHOCYTES # (AUTO) 1.4 X 10^3 (1.0-4.0); LYMPHOCYTES % (AUTO) 15 % (12-44); MEAN CORPUSCULAR HEMOGLOBIN 28 PG (25-34); MEAN CORPUSCULAR HGB CONC 33 G/DL (32-36); MEAN CORPUSCULAR VOLUME 86 FL (80-99); MEAN PLATELET VOLUME 10.9 FL (7.4-10.4); MONOCYTES # (AUTO) 0.7 X 10^3 (0.0-1.0); MONOCYTES % (AUTO) 8 % (0-12); NEUTROPHILS # (AUTO) 6.9 X 10^3 (1.8-7.8); NEUTROPHILS % (AUTO) 75 % (42-75); PLATELET COUNT 303 10^3/uL (130-400); RED BLOOD COUNT 4.24 10^6/uL (4.35-5.85); RED CELL DISTRIBUTION WIDTH 13.8 % (10.0-14.5); WHITE BLOOD COUNT 9.3 10^3/uL (4.3-11.0)
[2017-06-14 14:37] LABS: ALANINE AMINOTRANSFERASE 58 U/L (0-55); ALBUMIN 4.1 GM/DL (3.2-4.5); ALKALINE PHOSPHATASE 150 U/L (40-136); BILIRUBIN,TOTAL 0.2 MG/DL (0.1-1.0); BUN/CREATININE RATIO 65; CALCIUM 9.5 MG/DL (8.5-10.1); CARBON DIOXIDE 21 MMOL/L (21-32); CHLORIDE 99 MMOL/L (98-107); CREATININE SERUM 1.19 MG/DL (0.60-1.30); GFR ESTIMATED > 60; GLUCOSE 108 MG/DL (70-105); MAGNESIUM 2.2 MG/DL (1.8-2.4); POTASSIUM 4.3 MMOL/L (3.6-5.0); SODIUM 131 MMOL/L (135-145); TOTAL PROTEIN 7.4 GM/DL (6.4-8.2)
== END ==
LOC: HH 14:15
PROVIDERS: ATTEND Internal Medicine Gastroenterology
DX: K50.90 Crohn's disease, unspecified, without complications (principal); R77.0 Abnormality of albumin; D64.9 Anemia, unspecified
CPT/HCPCS: 80053; 83735; 84100; 84134; 85025

== ENCOUNTER → 2017-06-16 | Outpatient (CLI) | payer MEDICARE ==
[2017-06-16 12:31] LABS: BASOPHILS # (AUTO) 0.1 10^3/uL (0.0-0.1); BASOPHILS % (AUTO) 1 % (0-10); EOSINOPHILS # (AUTO) 0.1 10^3/uL (0.0-0.3); EOSINOPHILS % (AUTO) 1 % (0-10); HEMATOCRIT 36 % (40-54); HEMOGLOBIN 11.9 G/DL (13.3-17.7); LYMPHOCYTES # (AUTO) 1.8 X 10^3 (1.0-4.0); LYMPHOCYTES % (AUTO) 14 % (12-44); MEAN CORPUSCULAR HEMOGLOBIN 29 PG (25-34); MEAN CORPUSCULAR HGB CONC 33 G/DL (32-36); MEAN CORPUSCULAR VOLUME 87 FL (80-99); MEAN PLATELET VOLUME 10.9 FL (7.4-10.4); MONOCYTES # (AUTO) 1.4 X 10^3 (0.0-1.0); MONOCYTES % (AUTO) 11 % (0-12); NEUTROPHILS # (AUTO) 8.9 X 10^3 (1.8-7.8); NEUTROPHILS % (AUTO) 73 % (42-75); PLATELET COUNT 327 10^3/uL (130-400); RED BLOOD COUNT 4.15 10^6/uL (4.35-5.85); RED CELL DISTRIBUTION WIDTH 13.9 % (10.0-14.5); WHITE BLOOD COUNT 12.2 10^3/uL (4.3-11.0)
[2017-06-16 12:45] LABS: ALANINE AMINOTRANSFERASE 59 U/L (0-55); ALBUMIN 3.9 GM/DL (3.2-4.5); ALKALINE PHOSPHATASE 135 U/L (40-136); BILIRUBIN,TOTAL 0.2 MG/DL (0.1-1.0); BUN/CREATININE RATIO 68; CALCIUM 9.8 MG/DL (8.5-10.1); CARBON DIOXIDE 22 MMOL/L (21-32); CHLORIDE 102 MMOL/L (98-107); CREATININE SERUM 0.88 MG/DL (0.60-1.30); GFR ESTIMATED > 60; GLUCOSE 99 MG/DL (70-105); MAGNESIUM 2.3 MG/DL (1.8-2.4); PHOSPHORUS 3.6 MG/DL (2.3-4.7); POTASSIUM 4.4 MMOL/L (3.6-5.0); SODIUM 134 MMOL/L (135-145)
== END ==
LOC: HH 07:00
PROVIDERS: ATTEND Surgery
DX: K50.90 Crohn's disease, unspecified, without complications (principal); R77.0 Abnormality of albumin; D64.9 Anemia, unspecified
CPT/HCPCS: 80053; 83735; 84100; 84134; 85025

== ENCOUNTER → 2017-06-21 | Outpatient (CLI) | payer MEDICARE ==
[2017-06-21 11:30] LABS: BASOPHILS % (AUTO) 0 % (0-10); EOSINOPHILS # (AUTO) 0.1 10^3/uL (0.0-0.3); EOSINOPHILS % (AUTO) 1 % (0-10); HEMATOCRIT 36 % (40-54); HEMOGLOBIN 11.6 G/DL (13.3-17.7); LYMPHOCYTES # (AUTO) 1.6 X 10^3 (1.0-4.0); LYMPHOCYTES % (AUTO) 15 % (12-44); MEAN CORPUSCULAR HEMOGLOBIN 28 PG (25-34); MEAN CORPUSCULAR HGB CONC 33 G/DL (32-36); MEAN CORPUSCULAR VOLUME 87 FL (80-99); MEAN PLATELET VOLUME 10.5 FL (7.4-10.4); MONOCYTES # (AUTO) 1.1 X 10^3 (0.0-1.0); MONOCYTES % (AUTO) 10 % (0-12); NEUTROPHILS # (AUTO) 7.6 X 10^3 (1.8-7.8); NEUTROPHILS % (AUTO) 73 % (42-75); PLATELET COUNT 271 10^3/uL (130-400); RED BLOOD COUNT 4.11 10^6/uL (4.35-5.85); RED CELL DISTRIBUTION WIDTH 14.3 % (10.0-14.5); WHITE BLOOD COUNT 10.4 10^3/uL (4.3-11.0)
[2017-06-21 11:44] LABS: ALANINE AMINOTRANSFERASE 32 U/L (0-55); ALKALINE PHOSPHATASE 94 U/L (40-136); BILIRUBIN,TOTAL 0.2 MG/DL (0.1-1.0); BUN/CREATININE RATIO 50; CALCIUM 9.7 MG/DL (8.5-10.1); CARBON DIOXIDE 26 MMOL/L (21-32); CHLORIDE 99 MMOL/L (98-107); CREATININE SERUM 1.01 MG/DL (0.60-1.30); GFR ESTIMATED > 60; GLUCOSE 112 MG/DL (70-105); MAGNESIUM 2.2 MG/DL (1.8-2.4); PHOSPHORUS 4.7 MG/DL (2.3-4.7); POTASSIUM 4.5 MMOL/L (3.6-5.0); SODIUM 133 MMOL/L (135-145); TOTAL PROTEIN 7.1 GM/DL (6.4-8.2)
== END ==
LOC: HH 07:00
PROVIDERS: ATTEND Internal Medicine Gastroenterology
DX: K50.90 Crohn's disease, unspecified, without complications (principal)
CPT/HCPCS: 80053; 83735; 84100; 84134; 85025

== ENCOUNTER → 2017-06-24 | Outpatient (CLI) | payer MEDICARE ==
[2017-06-24 11:38] LABS: BASOPHILS % (AUTO) 0 % (0-10); EOSINOPHILS # (AUTO) 0.1 10^3/uL (0.0-0.3); EOSINOPHILS % (AUTO) 1 % (0-10); HEMATOCRIT 35 % (40-54); HEMOGLOBIN 11.5 G/DL (13.3-17.7); LYMPHOCYTES # (AUTO) 1.6 X 10^3 (1.0-4.0); LYMPHOCYTES % (AUTO) 15 % (12-44); MEAN CORPUSCULAR HEMOGLOBIN 28 PG (25-34); MEAN CORPUSCULAR HGB CONC 33 G/DL (32-36); MEAN CORPUSCULAR VOLUME 87 FL (80-99); MEAN PLATELET VOLUME 10.8 FL (7.4-10.4); MONOCYTES # (AUTO) 1.2 X 10^3 (0.0-1.0); MONOCYTES % (AUTO) 10 % (0-12); NEUTROPHILS # (AUTO) 8.2 X 10^3 (1.8-7.8); NEUTROPHILS % (AUTO) 74 % (42-75); PLATELET COUNT 259 10^3/uL (130-400); RED BLOOD COUNT 4.07 10^6/uL (4.35-5.85); RED CELL DISTRIBUTION WIDTH 14.3 % (10.0-14.5); WHITE BLOOD COUNT 11.1 10^3/uL (4.3-11.0)
[2017-06-24 12:02] LABS: ALANINE AMINOTRANSFERASE 24 U/L (0-55); ALBUMIN 3.9 GM/DL (3.2-4.5); ALKALINE PHOSPHATASE 82 U/L (40-136); BILIRUBIN,TOTAL 0.2 MG/DL (0.1-1.0); BUN/CREATININE RATIO 47; CALCIUM 9.4 MG/DL (8.5-10.1); CARBON DIOXIDE 28 MMOL/L (21-32); CHLORIDE 100 MMOL/L (98-107); CREATININE SERUM 0.93 MG/DL (0.60-1.30); GFR ESTIMATED > 60; GLUCOSE 107 MG/DL (70-105); MAGNESIUM 2.3 MG/DL (1.8-2.4); PHOSPHORUS 4.5 MG/DL (2.3-4.7); POTASSIUM 4.3 MMOL/L (3.6-5.0); SODIUM 136 MMOL/L (135-145)
== END ==
LOC: HH 10:17
PROVIDERS: ATTEND Internal Medicine Gastroenterology
DX: K50.90 Crohn's disease, unspecified, without complications (principal)
CPT/HCPCS: 80053; 83735; 84100; 84134; 85025

== ENCOUNTER → 2017-06-28 | Outpatient (CLI) | payer MEDICARE ==
[2017-06-28 15:03] LABS: BASOPHILS % (AUTO) 0 % (0-10); EOSINOPHILS # (AUTO) 0.1 10^3/uL (0.0-0.3); EOSINOPHILS % (AUTO) 1 % (0-10); HEMATOCRIT 35 % (40-54); HEMOGLOBIN 11.2 G/DL (13.3-17.7); LYMPHOCYTES # (AUTO) 1.1 X 10^3 (1.0-4.0); LYMPHOCYTES % (AUTO) 16 % (12-44); MEAN CORPUSCULAR HEMOGLOBIN 27 PG (25-34); MEAN CORPUSCULAR HGB CONC 32 G/DL (32-36); MEAN CORPUSCULAR VOLUME 87 FL (80-99); MEAN PLATELET VOLUME 11.1 FL (7.4-10.4); MONOCYTES # (AUTO) 0.9 X 10^3 (0.0-1.0); MONOCYTES % (AUTO) 13 % (0-12); NEUTROPHILS # (AUTO) 5.1 X 10^3 (1.8-7.8); NEUTROPHILS % (AUTO) 70 % (42-75); PLATELET COUNT 238 10^3/uL (130-400); RED BLOOD COUNT 4.09 10^6/uL (4.35-5.85); RED CELL DISTRIBUTION WIDTH 14.4 % (10.0-14.5); WHITE BLOOD COUNT 7.2 10^3/uL (4.3-11.0)
[2017-06-28 15:13] LABS: ALANINE AMINOTRANSFERASE 47 U/L (0-55); ALBUMIN 3.9 GM/DL (3.2-4.5); ALKALINE PHOSPHATASE 96 U/L (40-136); BILIRUBIN,TOTAL 0.2 MG/DL (0.1-1.0); BUN/CREATININE RATIO 50; CALCIUM 9.3 MG/DL (8.5-10.1); CARBON DIOXIDE 26 MMOL/L (21-32); CHLORIDE 100 MMOL/L (98-107); CREATININE SERUM 0.98 MG/DL (0.60-1.30); GFR ESTIMATED > 60; GLUCOSE 102 MG/DL (70-105); PHOSPHORUS 3.8 MG/DL (2.3-4.7); POTASSIUM 4.1 MMOL/L (3.6-5.0); SODIUM 134 MMOL/L (135-145)
== END ==
LOC: HH 07:00
PROVIDERS: ATTEND Internal Medicine Gastroenterology
DX: K50.90 Crohn's disease, unspecified, without complications (principal)
CPT/HCPCS: 80053; 83735; 84100; 84134; 85025

== ENCOUNTER → 2017-07-01 | Outpatient (CLI) | payer MEDICARE ==
[2017-07-01 17:17] LABS: BASOPHILS % (AUTO) 0 % (0-10); EOSINOPHILS # (AUTO) 0.1 10^3/uL (0.0-0.3); EOSINOPHILS % (AUTO) 1 % (0-10); HEMATOCRIT 34 % (40-54); HEMOGLOBIN 10.9 G/DL (13.3-17.7); LYMPHOCYTES % (AUTO) 15 % (12-44); MEAN CORPUSCULAR HEMOGLOBIN 28 PG (25-34); MEAN CORPUSCULAR HGB CONC 32 G/DL (32-36); MEAN CORPUSCULAR VOLUME 86 FL (80-99); MONOCYTES # (AUTO) 0.8 X 10^3 (0.0-1.0); MONOCYTES % (AUTO) 12 % (0-12); NEUTROPHILS # (AUTO) 4.6 X 10^3 (1.8-7.8); NEUTROPHILS % (AUTO) 71 % (42-75); PLATELET COUNT 228 10^3/uL (130-400); RED BLOOD COUNT 3.91 10^6/uL (4.35-5.85); RED CELL DISTRIBUTION WIDTH 14.4 % (10.0-14.5); WHITE BLOOD COUNT 6.4 10^3/uL (4.3-11.0)
[2017-07-01 17:20] LABS: ALANINE AMINOTRANSFERASE 62 U/L (0-55); ALBUMIN 3.9 GM/DL (3.2-4.5); ALKALINE PHOSPHATASE 105 U/L (40-136); BILIRUBIN,TOTAL 0.2 MG/DL (0.1-1.0); BUN/CREATININE RATIO 43; CALCIUM 9.5 MG/DL (8.5-10.1); CARBON DIOXIDE 26 MMOL/L (21-32); CHLORIDE 101 MMOL/L (98-107); CREATININE SERUM 1.07 MG/DL (0.60-1.30); GFR ESTIMATED > 60; GLUCOSE 104 MG/DL (70-105); MAGNESIUM 1.8 MG/DL (1.8-2.4); PHOSPHORUS 4.4 MG/DL (2.3-4.7); POTASSIUM 4.5 MMOL/L (3.6-5.0); SODIUM 135 MMOL/L (135-145); TOTAL PROTEIN 6.8 GM/DL (6.4-8.2)
== END ==
LOC: HH 16:54
PROVIDERS: ATTEND Family Medicine
DX: K50.90 Crohn's disease, unspecified, without complications (principal); E43 Unspecified severe protein-calorie malnutrition
CPT/HCPCS: 80053; 83735; 84100; 85025

== ENCOUNTER → 2017-07-05 | Outpatient (CLI) | payer MEDICARE ==
[2017-07-05 13:30] LABS: BASOPHILS % (AUTO) 0 % (0-10); EOSINOPHILS # (AUTO) 0.1 10^3/uL (0.0-0.3); EOSINOPHILS % (AUTO) 1 % (0-10); HEMATOCRIT 34 % (40-54); HEMOGLOBIN 11.1 G/DL (13.3-17.7); LYMPHOCYTES # (AUTO) 1.2 X 10^3 (1.0-4.0); LYMPHOCYTES % (AUTO) 19 % (12-44); MEAN CORPUSCULAR HEMOGLOBIN 28 PG (25-34); MEAN CORPUSCULAR HGB CONC 33 G/DL (32-36); MEAN CORPUSCULAR VOLUME 85 FL (80-99); MEAN PLATELET VOLUME 10.9 FL (7.4-10.4); MONOCYTES # (AUTO) 0.9 X 10^3 (0.0-1.0); MONOCYTES % (AUTO) 14 % (0-12); NEUTROPHILS % (AUTO) 65 % (42-75); PLATELET COUNT 242 10^3/uL (130-400); RED BLOOD COUNT 4.01 10^6/uL (4.35-5.85); RED CELL DISTRIBUTION WIDTH 14.3 % (10.0-14.5); WHITE BLOOD COUNT 6.2 10^3/uL (4.3-11.0)
[2017-07-05 13:50] LABS: ALANINE AMINOTRANSFERASE 38 U/L (0-55); ALBUMIN 3.9 GM/DL (3.2-4.5); ALKALINE PHOSPHATASE 108 U/L (40-136); BILIRUBIN,TOTAL 0.2 MG/DL (0.1-1.0); BUN/CREATININE RATIO 30; CALCIUM 9.4 MG/DL (8.5-10.1); CARBON DIOXIDE 28 MMOL/L (21-32); CHLORIDE 97 MMOL/L (98-107); CREATININE SERUM 1.15 MG/DL (0.60-1.30); GFR ESTIMATED > 60; GLUCOSE 95 MG/DL (70-105); MAGNESIUM 1.8 MG/DL (1.8-2.4); PHOSPHORUS 4.6 MG/DL (2.3-4.7); POTASSIUM 4.6 MMOL/L (3.6-5.0); SODIUM 133 MMOL/L (135-145); TOTAL PROTEIN 7.1 GM/DL (6.4-8.2)
== END ==
LOC: HH 08:00
PROVIDERS: ATTEND Internal Medicine Gastroenterology
DX: K50.90 Crohn's disease, unspecified, without complications (principal)
CPT/HCPCS: 80053; 83735; 84100; 84134; 85025

== ENCOUNTER → 2017-07-08 | Outpatient (CLI) | payer MEDICARE ==
[2017-07-08 12:05] LABS: BASOPHILS % (AUTO) 1 % (0-10); EOSINOPHILS # (AUTO) 0.1 10^3/uL (0.0-0.3); EOSINOPHILS % (AUTO) 2 % (0-10); HEMATOCRIT 35 % (40-54); HEMOGLOBIN 11.5 G/DL (13.3-17.7); LYMPHOCYTES # (AUTO) 1.3 X 10^3 (1.0-4.0); LYMPHOCYTES % (AUTO) 19 % (12-44); MEAN CORPUSCULAR HEMOGLOBIN 28 PG (25-34); MEAN CORPUSCULAR HGB CONC 33 G/DL (32-36); MEAN CORPUSCULAR VOLUME 84 FL (80-99); MEAN PLATELET VOLUME 10.7 FL (7.4-10.4); MONOCYTES % (AUTO) 15 % (0-12); NEUTROPHILS # (AUTO) 4.2 X 10^3 (1.8-7.8); NEUTROPHILS % (AUTO) 64 % (42-75); PLATELET COUNT 244 10^3/uL (130-400); RED BLOOD COUNT 4.12 10^6/uL (4.35-5.85); RED CELL DISTRIBUTION WIDTH 14.1 % (10.0-14.5); WHITE BLOOD COUNT 6.5 10^3/uL (4.3-11.0)
[2017-07-08 12:24] LABS: ALBUMIN 4.1 GM/DL (3.2-4.5); BILIRUBIN,TOTAL 0.3 MG/DL (0.1-1.0); CALCIUM 9.6 MG/DL (8.5-10.1); CREATININE SERUM 1.39 MG/DL (0.60-1.30); PHOSPHORUS 4.7 MG/DL (2.3-4.7); POTASSIUM 4.4 MMOL/L (3.6-5.0); TOTAL PROTEIN 7.3 GM/DL (6.4-8.2)
== END ==
LOC: HH 08:00
PROVIDERS: ATTEND Internal Medicine Gastroenterology
DX: K50.90 Crohn's disease, unspecified, without complications (principal); E43 Unspecified severe protein-calorie malnutrition
CPT/HCPCS: 80053; 83735; 84100; 84134; 85025

== ENCOUNTER → 2017-07-12 | Outpatient (CLI) | payer MEDICARE ==
[2017-07-12 11:47] LABS: BASOPHILS # (AUTO) 0.1 10^3/uL (0.0-0.1); BASOPHILS % (AUTO) 1 % (0-10); EOSINOPHILS # (AUTO) 0.1 10^3/uL (0.0-0.3); EOSINOPHILS % (AUTO) 1 % (0-10); HEMATOCRIT 36 % (40-54); HEMOGLOBIN 12.1 G/DL (13.3-17.7); LYMPHOCYTES # (AUTO) 1.7 X 10^3 (1.0-4.0); LYMPHOCYTES % (AUTO) 15 % (12-44); MEAN CORPUSCULAR HEMOGLOBIN 27 PG (25-34); MEAN CORPUSCULAR HGB CONC 33 G/DL (32-36); MEAN CORPUSCULAR VOLUME 82 FL (80-99); MEAN PLATELET VOLUME 11.1 FL (7.4-10.4); MONOCYTES # (AUTO) 1.3 X 10^3 (0.0-1.0); MONOCYTES % (AUTO) 12 % (0-12); NEUTROPHILS # (AUTO) 7.7 X 10^3 (1.8-7.8); NEUTROPHILS % (AUTO) 71 % (42-75); PLATELET COUNT 286 10^3/uL (130-400); RED BLOOD COUNT 4.44 10^6/uL (4.35-5.85); RED CELL DISTRIBUTION WIDTH 13.9 % (10.0-14.5); WHITE BLOOD COUNT 10.9 10^3/uL (4.3-11.0)
[2017-07-12 12:06] LABS: ALBUMIN 4.3 GM/DL (3.2-4.5); BILIRUBIN,TOTAL 0.3 MG/DL (0.1-1.0); CALCIUM 9.9 MG/DL (8.5-10.1); CREATININE SERUM 1.38 MG/DL (0.60-1.30); MAGNESIUM 2.2 MG/DL (1.8-2.4); PHOSPHORUS 4.7 MG/DL (2.3-4.7); POTASSIUM 3.9 MMOL/L (3.6-5.0); TOTAL PROTEIN 7.7 GM/DL (6.4-8.2)
== END ==
LOC: HH 08:00
PROVIDERS: ATTEND Internal Medicine Gastroenterology
DX: K50.90 Crohn's disease, unspecified, without complications (principal)
CPT/HCPCS: 80053; 83735; 84100; 84134; 85025

== ENCOUNTER → 2017-07-15 | Outpatient (CLI) | payer MEDICARE ==
[2017-07-15 10:28] LABS: BASOPHILS # (AUTO) 0.1 10^3/uL (0.0-0.1); BASOPHILS % (AUTO) 0 % (0-10); EOSINOPHILS # (AUTO) 0.1 10^3/uL (0.0-0.3); EOSINOPHILS % (AUTO) 1 % (0-10); HEMATOCRIT 37 % (40-54); HEMOGLOBIN 12.3 G/DL (13.3-17.7); LYMPHOCYTES # (AUTO) 1.5 X 10^3 (1.0-4.0); LYMPHOCYTES % (AUTO) 11 % (12-44); MEAN CORPUSCULAR HEMOGLOBIN 27 PG (25-34); MEAN CORPUSCULAR HGB CONC 33 G/DL (32-36); MEAN CORPUSCULAR VOLUME 82 FL (80-99); MEAN PLATELET VOLUME 10.7 FL (7.4-10.4); MONOCYTES # (AUTO) 1.6 X 10^3 (0.0-1.0); MONOCYTES % (AUTO) 11 % (0-12); NEUTROPHILS # (AUTO) 11.2 X 10^3 (1.8-7.8); NEUTROPHILS % (AUTO) 77 % (42-75); PLATELET COUNT 310 10^3/uL (130-400); RED BLOOD COUNT 4.54 10^6/uL (4.35-5.85); RED CELL DISTRIBUTION WIDTH 13.7 % (10.0-14.5); WHITE BLOOD COUNT 14.5 10^3/uL (4.3-11.0)
[2017-07-15 10:49] LABS: ALBUMIN 4.2 GM/DL (3.2-4.5); BILIRUBIN,TOTAL 0.3 MG/DL (0.1-1.0); CALCIUM 9.9 MG/DL (8.5-10.1); CREATININE SERUM 1.21 MG/DL (0.60-1.30); MAGNESIUM 2.1 MG/DL (1.8-2.4); PHOSPHORUS 4.6 MG/DL (2.3-4.7); TOTAL PROTEIN 7.7 GM/DL (6.4-8.2)
[2017-07-15 11:06] LABS: NEUTROPHILS % (MANUAL) 74 %
[2017-07-15 11:07] LABS: BAND NEUTROPHILS 5 %; BASOPHILS % (MANUAL) 0 %; EOSINOPHILS % (MANUAL) 1 %; LYMPHOCYTES % (MANUAL) 10 %; MONOCYTES % (MANUAL) 9 %; MYELOCYTES % 1 %; RBC MORPH NORMAL
== END ==
LOC: HH 09:09
PROVIDERS: ATTEND Internal Medicine Gastroenterology
DX: K50.90 Crohn's disease, unspecified, without complications (principal)
CPT/HCPCS: 80053; 83735; 84100; 84134; 85007; 85027

== ENCOUNTER → 2017-07-19 | Outpatient (CLI) | payer MEDICARE ==
[2017-07-19 13:06] LABS: BASOPHILS % (AUTO) 0 % (0-10); EOSINOPHILS # (AUTO) 0.1 10^3/uL (0.0-0.3); EOSINOPHILS % (AUTO) 1 % (0-10); HEMATOCRIT 36 % (40-54); LYMPHOCYTES # (AUTO) 1.9 X 10^3 (1.0-4.0); LYMPHOCYTES % (AUTO) 18 % (12-44); MEAN CORPUSCULAR HEMOGLOBIN 27 PG (25-34); MEAN CORPUSCULAR HGB CONC 33 G/DL (32-36); MEAN CORPUSCULAR VOLUME 82 FL (80-99); MEAN PLATELET VOLUME 10.5 FL (7.4-10.4); MONOCYTES # (AUTO) 1.2 X 10^3 (0.0-1.0); MONOCYTES % (AUTO) 11 % (0-12); NEUTROPHILS # (AUTO) 7.3 X 10^3 (1.8-7.8); NEUTROPHILS % (AUTO) 70 % (42-75); PLATELET COUNT 332 10^3/uL (130-400); RED BLOOD COUNT 4.45 10^6/uL (4.35-5.85); RED CELL DISTRIBUTION WIDTH 13.8 % (10.0-14.5); WHITE BLOOD COUNT 10.5 10^3/uL (4.3-11.0)
[2017-07-19 13:34] LABS: ALBUMIN 4.3 GM/DL (3.2-4.5); BILIRUBIN,TOTAL 0.2 MG/DL (0.1-1.0); CALCIUM 9.8 MG/DL (8.5-10.1); CREATININE SERUM 1.37 MG/DL (0.60-1.30); MAGNESIUM 2.2 MG/DL (1.8-2.4); PHOSPHORUS 4.5 MG/DL (2.3-4.7); POTASSIUM 4.3 MMOL/L (3.6-5.0); TOTAL PROTEIN 7.9 GM/DL (6.4-8.2)
== END ==
LOC: HH 08:00
PROVIDERS: ATTEND Internal Medicine Gastroenterology
DX: K50.90 Crohn's disease, unspecified, without complications (principal)
CPT/HCPCS: 80053; 83735; 84100; 84134; 85025

== ENCOUNTER → 2021-04-09 | Outpatient (CLI) | payer MEDICARE ==
[2021-04-09 11:56] LABS: ABSOLUTE RETIC # 46 10e9/uL (24-90); BASOPHILS # (AUTO) 0.1 10^3/uL (0.0-0.1); BASOPHILS % (AUTO) 1 % (0-10); EOSINOPHILS # (AUTO) 0.1 10^3/uL (0.0-0.3); EOSINOPHILS % (AUTO) 2 % (0-10); HEMATOCRIT 36 % (40-54); HEMOGLOBIN 10.4 g/dL (13.3-17.7); LYMPHOCYTES # (AUTO) 0.9 10^3/uL (1.0-4.0); LYMPHOCYTES % (AUTO) 13 % (12-44); MEAN CORPUSCULAR HEMOGLOBIN 23 pg (25-34); MEAN CORPUSCULAR HGB CONC 29 g/dL (32-36); MEAN CORPUSCULAR VOLUME 80 fL (80-99); MEAN PLATELET VOLUME 8.6 fL (9.0-12.2); MONOCYTES # (AUTO) 0.8 10^3/uL (0.0-1.0); MONOCYTES % (AUTO) 12 % (0-12); NEUTROPHILS # (AUTO) 4.7 10^3/uL (1.8-7.8); NEUTROPHILS % (AUTO) 71 % (42-75); PLATELET COUNT 357 10^3/uL (130-400); RETICULOCYTE % 1.02 % (0.50-2.40); WHITE BLOOD COUNT 6.6 10^3/uL (4.3-11.0)
[2021-04-09 12:02] LABS: ALBUMIN 3.2 GM/DL (3.2-4.5); BILIRUBIN,TOTAL 0.4 MG/DL (0.1-1.0); CALCIUM 8.7 MG/DL (8.5-10.1); CREATININE SERUM 1.56 MG/DL (0.60-1.30); POTASSIUM 3.7 MMOL/L (3.6-5.0); TOTAL PROTEIN 7.3 GM/DL (6.4-8.2)
[2021-04-09 12:08] LABS: BAND NEUTROPHILS 19 %; EOSINOPHILS % (MANUAL) 3 %; LYMPHOCYTES % (MANUAL) 21 %; METAMYELOCYTES % 3 %; MONOCYTES % (MANUAL) 5 %; NEUTROPHILS % (MANUAL) 49 %
[2021-04-09 12:09] LABS: ANISOCYTOSIS SLIGHT; HYPOCHROMASIA MODERATE; MICROCYTOSIS SLIGHT; POIKILOCYTOSIS SLIGHT; POLYCHROMASIA SLIGHT; TOXIC GRANULATION/VACUOLAZATIO 3+
== END ==
LOC: LAB 11:09
PROVIDERS: ATTEND Internal Medicine Hematology & Oncology
DX: D50.9 Iron deficiency anemia, unspecified (principal)
CPT/HCPCS: 36415; 80053; 82274; 82607; 82728; 83540; 83550; 85007; 85027; 85045; 85055

== ENCOUNTER 2021-04-24 14:16 | Outpatient (RCR) | payer MEDICARE | END 2021-05-19 | disposition home or self-care (01) | LOC: ONC 14:16 | PROVIDERS: ATTEND Internal Medicine Hematology & Oncology | DX: D50.9 Iron deficiency anemia, unspecified (principal); D61.9 Aplastic anemia, unspecified; K92.2 Gastrointestinal hemorrhage, unspecified; K50.90 Crohn's disease, unspecified, without complications; N18.30 Chronic kidney disease, stage 3 unspecified | CPT/HCPCS: 99214 ==

== ENCOUNTER → 2021-07-18 | Outpatient (CLI) | payer MEDICARE ==
--- NOTE | 2021-07-18 14:16 | Diagnostic Imaging Report ---
EXAMINATION: CT chest without contrast (lung screening). TECHNIQUE: Multiple contiguous axial images were obtained through the chest without the use of intravenous contrast according to lung cancer screening protocol. All CT scans use one or more of the following dose optimizing techniques: automated exposure control, MA and/or KvP adjustment based on patient size and exam type or iterative reconstruction. HISTORY: 40 pack year history of smoking. COMPARISON: None available. FINDINGS: There is no edema or pneumonia. No pleural effusion. No pneumothorax. No suspicious nodules. There is no axillary or supraclavicular lymphadenopathy. There is no mediastinal lymphadenopathy. Heart size is normal. There are mild coronary artery calcifications. No pericardial effusion. Aorta is normal in caliber. Limited views of the upper abdomen are unremarkable. There are no suspicious osseus lesions. IMPRESSION: 1. No suspicious pulmonary nodules. LUNG-RADS CATEGORY: 1 MODIFIER: None. Dictated by: Dictated on workstation # [id number]
== END ==
LOC: RAD 12:15
PROVIDERS: ATTEND Family Medicine
DX: Z12.2 Encounter for screening for malignant neoplasm of respiratory organs (principal); Z87.891 Personal history of nicotine dependence
CPT/HCPCS: 71271

== ENCOUNTER → 2022-09-01 | Outpatient (CLI) | payer MEDICARE | LOC: CARD 09:56 | PROVIDERS: ATTEND Internal Medicine Cardiovascular Disease | DX: I08.0 Rheumatic disorders of both mitral and aortic valves (principal) | CPT/HCPCS: 93306 ==

== ENCOUNTER → 2022-09-09 | Outpatient (CLI) | payer MEDICARE ==
[~2022-09-09] MED LIST: CATHETER FLUSH 10 ML SYR IVP PRN
[2022-09-09 09:05] VITALS: BP 115/80
--- NOTE | 2022-09-09 11:54 | Cardiology Stress Test Report ---
Stress Test Report Date of Procedure/Referring: Date of Procedure: September 09, 2022 PCP Zofia Renee MD Admitting Physician Admitting Physician: Attending Physician: Chay Mcnulty MD Baseline Heart Rate: 59 Baseline Blood Pressure: Blood Pressure Systolic: 115 Blood Pressure Diastolic: 80 Vital Signs Date Time Temp Pulse Resp B/P (MAP) Pulse Ox O2 Delivery O2 Flow Rate FiO2 09/09/22 09:05 59 17 115/80 (92) 99 Baseline Vital Signs Vital Signs Date Time Temp Pulse Resp B/P (MAP) Pulse Ox O2 Delivery O2 Flow Rate FiO2 09/09/22 09:05 59 17 115/80 (92) 99 Baseline EKG: Baseline EKG: NSR, RBBB Summary: After explaining the procedure and details to the patient, he signed the consent and was brought to the stress nuclear laboratory. Patient exercised on standard Andrés protocol, EKG, heart rate and blood pressure were monitored continuously, resting and stress doses of radio tracer were injected, imaging was acquired and reviewed in the short axis, horizontal long axis and vertical long axis views Patient was able to exercise for a total of 3 minutes on Andrés protocol, METs 4.4 Maximum heart rate 146 Maximum blood pressure 156/76 Stress EKG, Minimal nondiagnostic changes Recovery EKG, Return to baseline TID: 1.01 SSS: 14 SDS: 4 EF: 55 Conclusion: Poor exercise tolerance for 3 minutes on standard Andrés protocol 4.4 METS achieving 96% of maximal expected heart rate Appropriate heart rate and blood pressure response to exercise return to baseline during recovery Baseline right bundle branch block with nondiagnostic EKG changes with exercise return to baseline during recovery Fixed defect at the basal to mid inferior wall, reversible ischemia involving the inferior apex and apex Normal left ventricular size, ejection fraction 55% Copy Copies To 1: ZOFIA RENEE MD, BASHAR J MD September 09, 2022 11:54
== END ==
LOC: CARD 07:04
PROVIDERS: ATTEND Internal Medicine Cardiovascular Disease
DX: R07.9 Chest pain, unspecified (principal)
CPT/HCPCS: 78452; 93017; A9502

== ENCOUNTER 2022-09-16 06:46 | Day surgery (SDC) | payer MEDICARE ==
[~2022-09-16] VITALS: Ht 177.8 cm; Wt 63.5 kg
[2022-09-16] VITALS (10 sets, daily range): BP systolic 94–115; BP diastolic 52–63
[2022-09-16] MEDS ORDERED: LIDOCAINE 1% INJ 20 ML VIAL ONE (07:00)
[2022-09-16] MEDS ORDERED: NS IV 1000 ML 1,000 ML ONE (07:00)
[2022-09-16] MEDS ORDERED: NS IV 1000 ML 1,000 ML IV SCH ×2 (07:00→08:45)
[2022-09-16] MEDS ORDERED: HEParin (CATH LAB) 2,000 ML IV ONE (07:00)
[2022-09-16 07:24] LABS: HEMATOCRIT 34 % (40-54); HEMOGLOBIN 10.3 g/dL (13.3-17.7); MEAN CORPUSCULAR HEMOGLOBIN 27 pg (25-34); MEAN CORPUSCULAR HGB CONC 30 g/dL (32-36); MEAN CORPUSCULAR VOLUME 88 fL (80-99); MEAN PLATELET VOLUME 8.2 fL (9.0-12.2); PLATELET COUNT 313 10^3/uL (130-400); WHITE BLOOD COUNT 5.8 10^3/uL (4.3-11.0)
[2022-09-16 07:26] LABS: BILIRUBIN,URINE NEGATIVE (NEGATIVE); CLARITY,URINE CLEAR; COLOR,URINE YELLOW; GLUCOSE, URINE (UA) NEGATIVE (NEGATIVE); KETONES,URINE NEGATIVE (NEGATIVE); LEUKOCYTE ESTERASE ,URINE NEGATIVE (NEGATIVE); NITRITE,URINE NEGATIVE (NEGATIVE); PROTEIN,URINE NEGATIVE (NEGATIVE)
[2022-09-16 07:37] LABS: AMORPHOUS SEDIMENT,UR RARE AMOR URATES /LPF; BACTERIA,URINE NEGATIVE /HPF; SQUAMOUS EPITHELIAL CELL,UR RARE /HPF
--- NOTE | 2022-09-16 07:37 | Diagnostic Imaging Report ---
INDICATION: Chest pain Portable chest 7:29 AM Heart size and pulmonary vascularity are normal. Lungs are clear. There are no effusions or pneumothoraces. IMPRESSION: Negative chest. Dictated by: Dictated on workstation # [id number]
[2022-09-16 07:41] LABS: PROTHROMBIN TIME PATIENT 13.5 SEC (12.2-14.7)
[2022-09-16 07:43] LABS: ALBUMIN 3.1 GM/DL (3.2-4.5); BILIRUBIN,TOTAL 0.3 MG/DL (0.1-1.0); CALCIUM 8.2 MG/DL (8.5-10.1); CREATININE SERUM 1.48 MG/DL (0.60-1.30); POTASSIUM 3.7 MMOL/L (3.6-5.0); TOTAL PROTEIN 6.4 GM/DL (6.4-8.2)
[2022-09-16] MEDS ORDERED: fentaNYL INJ 100 MCG/2 ML AMP ONE (07:49)
[2022-09-16] MEDS ORDERED: MIDAZOLAM 5 MG/5 ML (VERSED) VIAL ONE (07:50)
[2022-09-16] MEDS ORDERED: PRED5TAB PO (08:08)
[2022-09-16] MEDS ORDERED: TMSL.4C PO (08:08)
[2022-09-16] MEDS ORDERED: ACET325T38 PO (08:08)
[2022-09-16] MEDS ORDERED: PANT40TA52 PO (08:08)
[2022-09-16] MEDS ORDERED: CALC500T7 PO (08:08)
[2022-09-16] MEDS ORDERED: CALC-147 PO (08:08)
[2022-09-16] MEDS ORDERED: MAGN400T39 PO (08:08)
[2022-09-16] MEDS ORDERED: LORA-405 PO (08:08)
[2022-09-16] MEDS ORDERED: LOPE2CAP PO (08:08)
[2022-09-16] MEDS ORDERED: B-COMPLEX PO (08:08)
[2022-09-16] MEDS ORDERED: MAGN1POW15 MC (08:08)
[2022-09-16] MEDS ORDERED: CHOL200059 PO (08:08)
--- NOTE | 2022-09-16 08:09 | Cardiac Procedure Note-CS/ASA ---
Pre-Procedure Note Pre-Op Procedure Note Date of Available H&P: September 10, 2022 Date H&P Reviewed: September 16, 2022 Time H&P Reviewed: 08:09 History & Physical: H&P Reviewed, Patient Examed, No changes noted Pre-Operative Diagnosis: CAD Moderate Sedation PreProcedure Time 08:09 ASA Score 3 Airway Lungs Heart ASA score ASA 1: a normal healthy patient ASA 2: a patient with a mild systemic disease (mid diabetes, controlled hypertension, obesity ASA 3: a patient with a severe systemic disease that limits activity (angina, COPD, prior Myocardial infarction) ASA 4: a patient with an incapacitating disease that is a constant threat to life (CHF, renal failure) ASA 5: a moribund patient not expected to survive 24 hrs. (ruptured aneurysm) ASA 6: a declared brain- patient whose organs are being harvested. For emergent operations, add the letter E after the classification Mallampati Classification Grade 3 Sedation Plan Analgesia, Amnesia, Plan communicated to team members, Discussed options with patient/fam, Discussed risks with patient/fam The patient is an appropriate candidate to undergo the planned procedure, sedation, and anesthesia. The patient immediately re-assessed prior to indication. KRISTIE PRICE MD September 16, 2022 08:09
--- NOTE | 2022-09-16 08:41 | Discharge Inst-Post CATH ---
Discharge Inst-CATH/EP Problems Reviewed?: Yes Post Cardiac Cath/EP D/C Inst Follow Up/Plan Appointment with Dr. Mcnulty's office in 2 to 4 weeks <b>CARDIAC CATH/EP PROCEDURE DISCHARGE INSTRUCTIONS</b> ACTIVITY * Go Home directly and rest. * Limit activity of the leg (or wrist if it was used) for 7 days including aer obics, swimming, jogging, bicycling, etc. * Restrict stair-climbing for 7 days if possible, if not, climb up with your non-cath leg, then bring together on the same step. * Avoid lifting, pushing, pulling or excessive movement of the affected extremi ty for 7 days. * Customary sexual activity may be resumed after 2 days-use caution not to use a position that strains or causes pain to the affected extremity. * No driving for 24 hours. * NO SMOKING. * Avoid straining for bowel movements for 7 days. * Gentle walking on level ground is allowed. * Returning to work will depend on the type of procedure and the results. Your doctor will discuss this with you. CALL YOUR DOCTOR FOR ANY OF THE FOLLOWING: *If bleeding from the puncture site occurs- Apply gentle pressure to site with clean cloth and call your doctor or EMS. * If a knot or lump forms under the skin, increases in size, or causes pain. * If bruising appears to be worsening or moving further down your leg instead of disappearing. * Temperature above 101 F. CARE OF YOUR GROIN INCISION; * Bruising or purple discoloration of the skin near the puncture site is common. * You may shower only, no bathtub bathing for 5 days. Be careful to avoid slipping as your leg may feel stiff. * If a closure device was used on your femoral artery, please see the attached guide regarding care of the device and your leg. * Leave dressing on FOR 24 hours. CARE OF YOUR WRIST INCISION; * Bruising or purple discoloration of the skin near the puncture site is common. * You may shower. * DO NOT submerge wrist. * Leave dressing on FOR 24 hours. KRISTIE MCNULTY MD September 16, 2022 08:41
--- NOTE | 2022-09-16 08:44 | Cardiac Cath Report ---
Cardiac Cath Report Physician (s)/Technical Service Engineer (s) Physician KRISTIE PRICE MD Pre-Procedure Diagnosis Pre-Procedure Diagnosis: CAD Post-Procedure Note Procedure Start Date: September 16, 2022 Name of Procedure: Left heart catheterization Findings/Procedure Note PROCEDURE NOTE: 72-year-old gentleman with history of chest pain, hypertension, hyperlipidemia, abnormal stress test with inferior wall ischemia, scheduled for cardiac catheterization possible PTCA. After explaining the procedure to the patient, all pros and cons were explained, all questions were answered. The patient signed the consent and then he was placed in the cardiac catheterization laboratory. Groin was prepped in SL fashion local anesthesia was used. Sheath placed in the right femoral artery. Ruy' right and left catheter were used to access the coronary system. Pigtail was used to access the left ventricular cavity. Left ventriculogram was not done, pressure was measured At the end of the procedure the sheath was removed. Closure device was deployed FINDINGS: Hemodynamics LV 106/13, end-diastolic pressure of 13 Aorta 104/42 mean of 66 ANATOMY: Left Main is free of obstructive disease Left Anterior Descending is small artery extending to the apex and wrapping around the apex with no obstructive disease Left Circumflex is nondominant artery with no obstructive disease Right Coronary Artery is dominant artery is small in size, coronary spasm induced by the catheter otherwise no significant obstructive disease LV Gram was not done to limit the exposure to contrast, normal left ventricular end-diastolic pressure CONCLUSION: Small coronary system with coronary spasm in the right coronary artery, nonobstructive disease Normal left ventricular end-diastolic pressure DISCUSSION AND RECOMMENDATION: Abnormal stress test is probably due to coronary spasm versus extracardiac attenuation, no intervention is warranted Anesthesia Type: Conscious Sedation Estimated blood loss (mL): 10 ml Contrast Amount: 16 ml Total Radiation Dose: 193 mGy Post-Procedure Diagnosis Post-operative diagnosis: Chest pain Coronary artery disease Hypertension Hyperlipidemia KRISTIE PRICE MD September 16, 2022 08:44
[2022-09-16] MEDS ORDERED: PATIENT MAY USE OWN MEDS, ALL PO SCH (08:45)
== END 2022-09-16 13:25 | disposition home or self-care (01) ==
LOC: CATH 06:46 → SDC 08:55 → CATH 13:25
PROVIDERS: ATTEND Internal Medicine Cardiovascular Disease
DX: I25.10 Atherosclerotic heart disease of native coronary artery without angina pectoris (principal); I10 Essential (primary) hypertension; E78.5 Hyperlipidemia, unspecified; J44.9 Chronic obstructive pulmonary disease, unspecified; N18.30 Chronic kidney disease, stage 3 unspecified; I65.23 Occlusion and stenosis of bilateral carotid arteries; F17.210 Nicotine dependence, cigarettes, uncomplicated; Z87.19 Personal history of other diseases of the digestive system; Z86.2 Personal history of diseases of the blood and blood-forming organs and certain disorders involving the immune mechanism
CPT/HCPCS: 71045; 80053; 80061; 81000; 85027; 85610; 85730; 87081; 93005; 93458; C1760; C1894; 36415

== ENCOUNTER → 2022-10-07 | Outpatient (CLI) | payer MEDICARE ==
[~2022-10-07] MED LIST changes: +ACET325T38 PO; +B-COMPLEX PO; +CALC-147 PO; +CALC500T7 PO; -CATHETER FLUSH 10 ML SYR IVP PRN; +CHOL200059 PO; +LOPE2CAP PO; +LORA-405 PO; +MAGN1POW15 MC; +MAGN400T39 PO; +PANT40TA52 PO; +PRED5TAB PO; +TMSL.4C PO
--- NOTE | 2022-10-07 13:45 | Diagnostic Imaging Report ---
EXAMINATION: CT chest without contrast (lung screening). TECHNIQUE: Multiple contiguous axial images were obtained through the chest without the use of intravenous contrast according to lung cancer screening protocol. All CT scans use one or more of the following dose optimizing techniques: automated exposure control, MA and/or KvP adjustment based on patient size and exam type or iterative reconstruction. HISTORY: [id number] history of smoking. COMPARISON: 07/18/2021. FINDINGS: There is no edema or pneumonia. No pleural effusion. No pneumothorax. No suspicious nodules. There is no axillary or supraclavicular lymphadenopathy. There is no mediastinal lymphadenopathy. Heart size is normal. There are mild coronary artery calcifications. No pericardial effusion. Aorta is normal in caliber. Limited views of the upper abdomen are unremarkable. There are no suspicious osseous lesions. IMPRESSION: 1. No suspicious pulmonary nodules. LUNG-RADS CATEGORY: 1 MODIFIER: None. Dictated by: Dictated on workstation # [id number]
== END ==
LOC: RAD 12:10
PROVIDERS: ATTEND Family Medicine
DX: Z12.2 Encounter for screening for malignant neoplasm of respiratory organs (principal); Z87.891 Personal history of nicotine dependence
CPT/HCPCS: 71271

== ENCOUNTER → 2022-11-16 | Outpatient (RCR) | payer MEDICARE ==
[2022-11-11 13:00] VITALS: BP 113/60
[2022-11-11] MEDS: cefTRIAXone INJECTION 2,000 MG in NS (IVPB) 50 ML 50 ML IV SCH (13:15)
[2022-11-12 13:00] VITALS: BP 116/68
[2022-11-12] MEDS: cefTRIAXone INJECTION 2,000 MG in NS (IVPB) 50 ML 50 ML IV SCH (13:15)
[2022-11-13] MEDS: cefTRIAXone INJECTION 2,000 MG in NS (IVPB) 50 ML 50 ML IV SCH ×2 (13:05→13:10)
[2022-11-13 13:50] VITALS: BP 126/68
[2022-11-14] MEDS: cefTRIAXone INJECTION 2,000 MG in NS (IVPB) 50 ML 50 ML IV SCH (09:22)
[2022-11-14 09:31] VITALS: BP 107/62
[2022-11-15] MEDS: cefTRIAXone INJECTION 2,000 MG in NS (IVPB) 50 ML 50 ML IV SCH (09:14)
[2022-11-15 09:29] VITALS: BP 110/50
[~2022-11-16] VITALS: Ht 177.8 cm; Wt 63.5 kg
[~2022-11-16] MED LIST changes: +METR375C PO; +NS (IVPB) 50 ML 50 ML ONE; +cefTRIAXone 2,000 MG VIAL ONE
[2022-11-16] MEDS: cefTRIAXone INJECTION 2,000 MG in NS (IVPB) 50 ML 50 ML IV SCH (09:25)
[2022-11-16 09:29] VITALS: BP 104/51
[2022-11-16 09:34] LABS: BASOPHILS # (AUTO) 0.1 10^3/uL (0.0-0.1); BASOPHILS % (AUTO) 1 % (0-10); EOSINOPHILS # (AUTO) 0.2 10^3/uL (0.0-0.3); EOSINOPHILS % (AUTO) 2 % (0-10); HEMATOCRIT 32 % (40-54); HEMOGLOBIN 9.6 g/dL (13.3-17.7); LYMPHOCYTES # (AUTO) 1.2 10^3/uL (1.0-4.0); LYMPHOCYTES % (AUTO) 15 % (12-44); MEAN CORPUSCULAR HEMOGLOBIN 27 pg (25-34); MEAN CORPUSCULAR HGB CONC 30 g/dL (32-36); MEAN CORPUSCULAR VOLUME 90 fL (80-99); MEAN PLATELET VOLUME 8.8 fL (9.0-12.2); MONOCYTES # (AUTO) 0.8 10^3/uL (0.0-1.0); MONOCYTES % (AUTO) 9 % (0-12); NEUTROPHILS # (AUTO) 5.9 10^3/uL (1.8-7.8); NEUTROPHILS % (AUTO) 71 % (42-75); PLATELET COUNT 242 10^3/uL (130-400); WHITE BLOOD COUNT 8.4 10^3/uL (4.3-11.0)
[2022-11-16 09:50] LABS: ALBUMIN 3.1 GM/DL (3.2-4.5); BILIRUBIN,TOTAL 0.2 MG/DL (0.1-1.0); CALCIUM 8.5 MG/DL (8.5-10.1); CREATININE SERUM 1.2 MG/DL (0.60-1.30); POTASSIUM 3.5 MMOL/L (3.6-5.0); TOTAL PROTEIN 6.1 GM/DL (6.4-8.2)
== END | disposition home or self-care (01) ==
LOC: SDC 11-11 12:46
PROVIDERS: ATTEND Internal Medicine Infectious Disease
DX: L02.91 Cutaneous abscess, unspecified (principal)
CPT/HCPCS: 36415; 80053; 85025; 96365

== ENCOUNTER 2022-11-30 09:31 | Outpatient (RCR) | payer MEDICARE ==
[2022-11-17 09:10] VITALS: BP 120/63
[2022-11-23 10:40] VITALS: BP 122/65
[2022-11-23] MEDS: cefTRIAXone 2,000 MG/NS 50 ML IVPB IV SCH ×2 (10:46)
[2022-11-24 09:45] VITALS: BP 111/63
[2022-11-24] MEDS: CATHETER FLUSH 10 ML SYR IVP PRN ×2 (09:55→10:06)
[2022-11-24] MEDS: cefTRIAXone 2,000 MG/NS 50 ML IVPB IV SCH ×2 (09:55)
[2022-11-25] MEDS: cefTRIAXone 2,000 MG/NS 50 ML IVPB IV SCH ×2 (09:59)
[2022-11-25 10:12] LABS: BASOPHILS # (AUTO) 0.1 10^3/uL (0.0-0.1); BASOPHILS % (AUTO) 1 % (0-10); EOSINOPHILS # (AUTO) 0.1 10^3/uL (0.0-0.3); EOSINOPHILS % (AUTO) 1 % (0-10); HEMATOCRIT 32 % (40-54); HEMOGLOBIN 9.8 g/dL (13.3-17.7); LYMPHOCYTES # (AUTO) 0.8 10^3/uL (1.0-4.0); LYMPHOCYTES % (AUTO) 9 % (12-44); MEAN CORPUSCULAR HEMOGLOBIN 27 pg (25-34); MEAN CORPUSCULAR HGB CONC 31 g/dL (32-36); MEAN CORPUSCULAR VOLUME 88 fL (80-99); MEAN PLATELET VOLUME 9.1 fL (9.0-12.2); MONOCYTES % (AUTO) 12 % (0-12); NEUTROPHILS # (AUTO) 6.3 10^3/uL (1.8-7.8); NEUTROPHILS % (AUTO) 76 % (42-75); PLATELET COUNT 246 10^3/uL (130-400); WHITE BLOOD COUNT 8.3 10^3/uL (4.3-11.0)
[2022-11-25 10:23] LABS: ALBUMIN 3.2 GM/DL (3.2-4.5); POTASSIUM 3.7 MMOL/L (3.6-5.0)
[2022-11-25 10:24] LABS: CALCIUM 8.6 MG/DL (8.5-10.1)
[2022-11-25 10:25] LABS: TOTAL PROTEIN 6.8 GM/DL (6.4-8.2)
[2022-11-25 10:27] VITALS: BP 123/70
[2022-11-25 10:27] LABS: BILIRUBIN,TOTAL 0.2 MG/DL (0.1-1.0)
[2022-11-25 10:29] LABS: CREATININE SERUM 1.43 MG/DL (0.60-1.30)
[2022-11-26] MEDS: cefTRIAXone 2,000 MG/NS 50 ML IVPB IV SCH ×2 (09:06)
[2022-11-26 09:47] LABS: POTASSIUM 3.6 MMOL/L (3.6-5.0)
[2022-11-26 09:49] LABS: CALCIUM 8.8 MG/DL (8.5-10.1)
[2022-11-26 09:53] LABS: CREATININE SERUM 1.39 MG/DL (0.60-1.30)
[2022-11-26 09:58] VITALS: BP 117/62
[2022-11-27] MEDS: cefTRIAXone 2,000 MG/NS 50 ML IVPB IV SCH ×2 (09:25)
[2022-11-27 10:00] VITALS: BP 99/55
--- NOTE | 2022-11-27 10:30 | Diagnostic Imaging Report ---
INDICATION: PICC line placement FINDINGS: Left PICC catheter tip is at the mid SVC level in satisfactory position. Air trapping and features of likely COPD chronic. No acute consolidation. Heart size stable. No vascular congestion. No pleural pathology. IMPRESSION: PICC line placed in good position. No acute pathology or adverse change. Dictated by: Dictated on workstation # [id number]
[2022-11-28 09:31] VITALS: BP 121/69
[2022-11-28] MEDS: cefTRIAXone 2,000 MG/NS 50 ML IVPB IV SCH ×4 (09:42→09:43)
[2022-11-28 09:45] VITALS: BP 121/69
[2022-11-29] MEDS: cefTRIAXone 2,000 MG/NS 50 ML IVPB IV SCH ×2 (09:18)
[2022-11-29 09:20] VITALS: BP 106/56
[~2022-11-30] VITALS: Wt 63.5 kg
[~2022-11-30 09:31] MED LIST changes: +cefTRIAXone 2,000 MG/NS 50 ML IVPB IV ONE
[2022-11-30] MEDS ORDERED: NS (IVPB) 50 ML 50 ML ONE (09:32)
[2022-11-30] MEDS: CATHETER FLUSH 10 ML SYR IVP PRN ×2 (09:45→10:12)
[2022-11-30 09:54] VITALS: BP 115/64
[2022-11-30 09:57] LABS: BASOPHILS # (AUTO) 0.1 10^3/uL (0.0-0.1); BASOPHILS % (AUTO) 1 % (0-10); EOSINOPHILS # (AUTO) 0.1 10^3/uL (0.0-0.3); EOSINOPHILS % (AUTO) 2 % (0-10); HEMATOCRIT 32 % (40-54); HEMOGLOBIN 9.6 g/dL (13.3-17.7); LYMPHOCYTES # (AUTO) 0.9 10^3/uL (1.0-4.0); LYMPHOCYTES % (AUTO) 11 % (12-44); MEAN CORPUSCULAR HEMOGLOBIN 27 pg (25-34); MEAN CORPUSCULAR HGB CONC 30 g/dL (32-36); MEAN CORPUSCULAR VOLUME 88 fL (80-99); MEAN PLATELET VOLUME 8.8 fL (9.0-12.2); MONOCYTES # (AUTO) 0.8 10^3/uL (0.0-1.0); MONOCYTES % (AUTO) 9 % (0-12); NEUTROPHILS # (AUTO) 6.3 10^3/uL (1.8-7.8); NEUTROPHILS % (AUTO) 74 % (42-75); PLATELET COUNT 279 10^3/uL (130-400); WHITE BLOOD COUNT 8.6 10^3/uL (4.3-11.0)
[2022-11-30 10:12] LABS: ALBUMIN 3.3 GM/DL (3.2-4.5); POTASSIUM 3.5 MMOL/L (3.6-5.0)
[2022-11-30 10:14] LABS: CALCIUM 8.8 MG/DL (8.5-10.1)
[2022-11-30 10:15] LABS: TOTAL PROTEIN 6.8 GM/DL (6.4-8.2)
[2022-11-30 10:17] LABS: BILIRUBIN,TOTAL 0.1 MG/DL (0.1-1.0)
[2022-11-30 10:19] LABS: CREATININE SERUM 1.47 MG/DL (0.60-1.30)
== END 2022-12-17 | disposition home or self-care (01) ==
LOC: SDC 09:31
PROVIDERS: ATTEND Internal Medicine Infectious Disease
DX: L02.91 Cutaneous abscess, unspecified (principal)
CPT/HCPCS: 36415; 71045; 80048; 80053; 85025; 96365; 99211

== ENCOUNTER → 2023-02-16 | Outpatient (RCR) | payer MEDICARE ==
[~2023-02-16] MED LIST changes: +cefTRIAXone 1 GM/NS 50 ML IVPB IV SCH; +cefTRIAXone 1,000 MG VIAL IV/IM ONE; -cefTRIAXone 2,000 MG VIAL ONE; -cefTRIAXone 2,000 MG/NS 50 ML IVPB IV ONE
[2023-02-16 10:25] VITALS: BP 116/68
[2023-02-16 11:20] VITALS: BP 116/68
== END ==
LOC: SDC 10:13 → EDSTATUS 10:15 → SDC 10:16
PROVIDERS: ATTEND Internal Medicine
DX: L02.211 Cutaneous abscess of abdominal wall (principal)
CPT/HCPCS: 96365

== ENCOUNTER 2023-02-22 09:55 | Outpatient (RCR) | payer MEDICARE ==
[2023-02-17 11:10] VITALS: BP 127/78
[2023-02-18 09:35] VITALS: BP 148/71
[2023-02-18] MEDS: cefTRIAXone 1 GM/NS 50 ML IVPB IV SCH ×2 (10:18)
[2023-02-18 10:32] LABS: BASOPHILS # (AUTO) 0.1 10^3/uL (0.0-0.1); BASOPHILS % (AUTO) 1 % (0-10); EOSINOPHILS # (AUTO) 0.1 10^3/uL (0.0-0.3); EOSINOPHILS % (AUTO) 2 % (0-10); HEMATOCRIT 31 % (40-54); HEMOGLOBIN 9.9 g/dL (13.3-17.7); LYMPHOCYTES # (AUTO) 0.7 10^3/uL (1.0-4.0); LYMPHOCYTES % (AUTO) 14 % (12-44); MEAN CORPUSCULAR HEMOGLOBIN 27 pg (25-34); MEAN CORPUSCULAR HGB CONC 32 g/dL (32-36); MEAN CORPUSCULAR VOLUME 85 fL (80-99); MONOCYTES # (AUTO) 0.6 10^3/uL (0.0-1.0); MONOCYTES % (AUTO) 11 % (0-12); NEUTROPHILS # (AUTO) 3.8 10^3/uL (1.8-7.8); NEUTROPHILS % (AUTO) 71 % (42-75); PLATELET COUNT 289 10^3/uL (130-400); WHITE BLOOD COUNT 5.3 10^3/uL (4.3-11.0)
[2023-02-18 10:56] LABS: ALBUMIN 3.4 GM/DL (3.2-4.5); BILIRUBIN,TOTAL 0.3 MG/DL (0.1-1.0); CALCIUM 8.6 MG/DL (8.5-10.1); CREATININE SERUM 1.13 MG/DL (0.60-1.30); POTASSIUM 3.3 MMOL/L (3.6-5.0); TOTAL PROTEIN 5.8 GM/DL (6.4-8.2)
[2023-02-19 10:10] VITALS: BP 116/75
[2023-02-19] MEDS: cefTRIAXone 1 GM/NS 50 ML IVPB IV SCH ×2 (10:13)
[2023-02-20 09:00] VITALS: BP 148/74
[2023-02-20] MEDS: cefTRIAXone 1 GM/NS 50 ML IVPB IV SCH ×2 (09:12)
[2023-02-21 09:00] VITALS: BP 116/62
[2023-02-21] MEDS: cefTRIAXone 1 GM/NS 50 ML IVPB IV SCH ×2 (09:06)
[~2023-02-22 09:55] MED LIST changes: -cefTRIAXone 1 GM/NS 50 ML IVPB IV SCH
[2023-02-22] MEDS: cefTRIAXone 1 GM/NS 50 ML IVPB IV SCH ×2 (10:07)
[2023-02-22 10:37] VITALS: BP 144/73
== END 2023-02-23 16:30 | disposition home or self-care (01) ==
LOC: SDC 09:55
PROVIDERS: ATTEND Internal Medicine
DX: L02.211 Cutaneous abscess of abdominal wall (principal)
CPT/HCPCS: 36415; 80053; 85025; 96365; 99211